=== PATIENT | male | born 1940 | race Caucasian/White ===

== ENCOUNTER → 2017-05-28 09:36 | Outpatient (CLI) | payer MEDICARE, SELFPAY ==
[2017-05-28 10:41] LABS: Alanine Aminotransferase 30 U/L (12-78); Albumin Level 4.1 gm/dL (3.4-5.0); Albumin/Globulin Ratio 1.4 (1.1-1.8); Alkaline Phosphatase 69 U/L (46-116); Anion Gap 14.1 mEq/L (5-15); Aspartate Amino Transferase 16 U/L (15-37); Bilirubin,Total 0.5 mg/dL (0.2-1.0); Blood Urea Nitrogen 17 mg/dL (7-18); Calcium 9.4 mg/dL (8.5-10.1); Carbon Dioxide 27 mmol/L (21.0-32.0); Chloride 105 mmol/L (98-107); Chol/HDL Ratio 2.2 (1-3.5); Cholesterol 108 mg/dL (140-200); Creatinine,Serum 1.15 mg/dL (0.70-1.30); Estimated Glomerular Filt Rate 62 ml/min (>60); GFR (African American) 75 ML/MIN (>60); Globulin 2.9 gm/dl (1.3-3.2); Glucose 136 mg/dL (74-106); HDL Cholesterol 49 mg/dL (27-67); LDL Cholesterol 37 mg/dL (0-130); Potassium 4.1 mmoL/L (3.5-5.1); Sodium 142 mmol/L (136-145); Triglycerides 111 mg/dL (30-200); Uric Acid 7.1 mg/dL (2.6-7.2); VLDL Cholesterol 22 mg/dL (0-40)
[2017-05-28 10:56] LABS: Hemoglobin A1C 6.6 % (0.0-7.0)
== END ==
PROVIDERS: PCP Family Medicine; Visit Provider Family Medicine
DX: E11.9 Type 2 diabetes mellitus without complications (principal); E78.5 Hyperlipidemia, unspecified; I10 Essential (primary) hypertension; E79.0 Hyperuricemia without signs of inflammatory arthritis and tophaceous disease
CPT/HCPCS: 36415; 80053; 80061; 83036; 84550

== ENCOUNTER → 2017-08-21 09:35 | Outpatient (CLI) | payer MEDICARE, SELFPAY ==
[2017-08-21 11:51] LABS: Prostate Specific Ag, Diagnost < 0.05 ng/mL (0.0-4.0)
== END ==
PROVIDERS: Visit Provider Urology
DX: Z85.46 Personal history of malignant neoplasm of prostate (principal)
CPT/HCPCS: 36415; 84153

== ENCOUNTER → 2017-11-21 08:49 | Outpatient (CLI) | payer MEDICARE, SELFPAY ==
[2017-11-21 10:21] LABS: Hemoglobin A1C 7.4 % (0.0-7.0)
[2017-11-21 11:11] LABS: Alanine Aminotransferase 31 U/L (12-78); Albumin/Globulin Ratio 1.4 (1.1-1.8); Alkaline Phosphatase 68 U/L (46-116); Anion Gap 13.9 mEq/L (5-15); Aspartate Amino Transferase 19 U/L (15-37); Bilirubin,Total 0.5 mg/dL (0.2-1.0); Blood Urea Nitrogen 23 mg/dL (7-18); Calcium 9.6 mg/dL (8.5-10.1); Carbon Dioxide 27 mmol/L (21.0-32.0); Chloride 105 mmol/L (98-107); Chol/HDL Ratio 2.8 (1-3.5); Cholesterol 113 mg/dL (140-200); Creatinine,Serum 1.15 mg/dL (0.70-1.30); Estimated Glomerular Filt Rate 62 ml/min (>60); GFR (African American) 75 ML/MIN (>60); Globulin 2.8 gm/dl (1.3-3.2); Glucose 158 mg/dL (74-106); HDL Cholesterol 41 mg/dL (27-67); LDL Cholesterol 42 mg/dL (0-130); Potassium 3.9 mmoL/L (3.5-5.1); Sodium 142 mmol/L (136-145); Total Protein,Serum 6.8 gm/dL (6.4-8.2); Triglycerides 151 mg/dL (30-200); VLDL Cholesterol 30 mg/dL (0-40)
[2017-11-21 11:21] LABS: Prostate Specific Ag, Diagnost 0.01 ng/mL (0.0-4.0)
== END ==
PROVIDERS: Visit Provider Family Medicine
DX: E11.9 Type 2 diabetes mellitus without complications (principal); I10 Essential (primary) hypertension; Z85.46 Personal history of malignant neoplasm of prostate; E78.00 Pure hypercholesterolemia, unspecified; E79.0 Hyperuricemia without signs of inflammatory arthritis and tophaceous disease
CPT/HCPCS: 36415; 80053; 80061; 83036; 84153

== ENCOUNTER → 2018-04-09 07:53 | Outpatient (CLI) | payer MEDICARE, SELFPAY ==
[2018-04-09 09:58] LABS: Prostate Specific Ag, Diagnost < 0.05 ng/mL (0.0-4.0)
== END ==
PROVIDERS: Visit Provider Urology
DX: C61 Malignant neoplasm of prostate (principal)
CPT/HCPCS: 36415; 84153

== ENCOUNTER → 2018-05-22 08:07 | Outpatient (CLI) | payer MEDICARE, SELFPAY ==
[2018-05-22 09:50] LABS: Alanine Aminotransferase 25 U/L (12-78); Albumin Level 4.1 gm/dL (3.4-5.0); Albumin/Globulin Ratio 1.5 (1.1-1.8); Alkaline Phosphatase 65 U/L (46-116); Anion Gap 14.7 mEq/L (5-15); Aspartate Amino Transferase 12 U/L (15-37); Bilirubin,Total 0.5 mg/dL (0.2-1.0); Blood Urea Nitrogen 17 mg/dL (7-18); Calcium 9.8 mg/dL (8.5-10.1); Carbon Dioxide 26 mmol/L (21.0-32.0); Chloride 104 mmol/L (98-107); Chol/HDL Ratio 2.6 (1-3.5); Cholesterol 104 mg/dL (140-200); Creatinine,Serum 1.12 mg/dL (0.70-1.30); Estimated Glomerular Filt Rate 64 ml/min (>60); GFR (African American) 77 ML/MIN (>60); Globulin 2.7 gm/dl (1.3-3.2); Glucose 116 mg/dL (74-106); HDL Cholesterol 40 mg/dL (27-67); LDL Cholesterol 36 mg/dL (0-130); Potassium 3.7 mmoL/L (3.5-5.1); Sodium 141 mmol/L (136-145); Total Protein,Serum 6.8 gm/dL (6.4-8.2); Triglycerides 142 mg/dL (30-200); VLDL Cholesterol 28 mg/dL (0-40)
== END ==
PROVIDERS: Visit Provider Family Medicine
DX: E78.5 Hyperlipidemia, unspecified (principal); E11.9 Type 2 diabetes mellitus without complications; I10 Essential (primary) hypertension; Z79.84 Long term (current) use of oral hypoglycemic drugs
CPT/HCPCS: 36415; 80053; 80061; 83036

== ENCOUNTER → 2018-10-13 11:56 | Outpatient (CLI) | payer MEDICARE, SELFPAY ==
[2018-10-13 12:53] LABS: Prostate Specific Ag, Diagnost 0 ng/mL (0.0-4.0)
== END ==
PROVIDERS: Visit Provider Urology
DX: C61 Malignant neoplasm of prostate (principal)
CPT/HCPCS: 36415; 84153

== ENCOUNTER → 2018-11-16 08:24 | Outpatient (CLI) | payer MEDICARE, SELFPAY ==
[2018-11-16 11:09] LABS: Alanine Aminotransferase 29 U/L (12-78); Albumin/Globulin Ratio 1.4 (1.1-1.8); Alkaline Phosphatase 78 U/L (46-116); Anion Gap 14.8 mEq/L (5-15); Aspartate Amino Transferase 11 U/L (15-37); Bilirubin,Total 0.6 mg/dL (0.2-1.0); Blood Urea Nitrogen 22 mg/dL (7-18); Calcium 9.5 mg/dL (8.5-10.1); Carbon Dioxide 26 mmol/L (21.0-32.0); Chloride 103 mmol/L (98-107); Chol/HDL Ratio 2.5 (1-3.5); Cholesterol 105 mg/dL (140-200); Creatinine,Serum 1.12 mg/dL (0.70-1.30); Estimated Glomerular Filt Rate 64 ml/min (>60); GFR (African American) 77 ML/MIN (>60); Globulin 2.9 gm/dl (1.3-3.2); Glucose 176 mg/dL (74-106); HDL Cholesterol 42 mg/dL (27-67); LDL Cholesterol 42 mg/dL (0-130); Potassium 3.8 mmoL/L (3.5-5.1); Sodium 140 mmol/L (136-145); Total Protein,Serum 6.9 gm/dL (6.4-8.2); Triglycerides 105 mg/dL (30-200); Uric Acid 6.4 mg/dL (2.6-7.2); VLDL Cholesterol 21 mg/dL (0-40)
== END ==
PROVIDERS: Visit Provider Family Medicine
DX: E11.9 Type 2 diabetes mellitus without complications (principal); Z79.84 Long term (current) use of oral hypoglycemic drugs; I10 Essential (primary) hypertension; E78.5 Hyperlipidemia, unspecified; E79.0 Hyperuricemia without signs of inflammatory arthritis and tophaceous disease
CPT/HCPCS: 36415; 80053; 80061; 83036; 84550

== ENCOUNTER → 2018-11-27 09:39 | Outpatient (CLI) | payer MEDICARE, SELFPAY ==
--- NOTE | 2018-11-27 09:43 | CA_ITS ---
APPROVED REPORT Drafter Electromechanical: RONNY Laterality: Bilateral Study Quality: Good Indications: Dizziness and Vertigo, Syncope Risk Factors Hypertension: Hyperlipidemia Doppler Spectral Velocity Analysis ECA (R) 46.40/ cm/s ECA (L) 78.90/ cm/s dICA (R) 67.60/14.90 cm/s dICA (L) 102.00/36.10 cm/s Coleman (R) 82.50/18.90 cm/s Coleman (L) 94.30/33.80 cm/s pICA (R) 75.40/20.40 cm/s pICA (L) 83.30/28.30 cm/s dCCA (R) 73.90/27.50 cm/s dCCA (L) 90.40/31.40 cm/s pCCA (R) 62.10/20.40 cm/s pCCA (L) 101.00/35.40 cm/s Vert (R) 26.70/ cm/s Vert (L) 37.40/ cm/s ICA/CCA 1.12 ICA/CCA 1.13 Findings Duplex evaluation demonstrates stenosis of the right proximal internal carotid artery <20% with PSV <140 cm/sec, EDV <100 cm/sec, and IC/CC Ratio <4.0.Duplex evaluation demonstrates stenosis of the left proximal internal carotid artery <20% with PSV <140 cm/sec, EDV <100 cm/sec, and IC/CC Ratio <4.0.Antegrade flow seen bilateral vertebral arteries. Conclusion Duplex evaluation demonstrates stenosis of the right proximal internal carotid artery <20% with PSV <140 cm/sec, EDV <100 cm/sec, and IC/CC Ratio <4.0.Duplex evaluation demonstrates stenosis of the left proximal internal carotid artery <20% with PSV <140 cm/sec, EDV <100 cm/sec, and IC/CC Ratio <4.0.Antegrade flow seen bilateral vertebral arteries. Electronically signed by : Ruel Casillas MD 11/27/2018 16:07:58
== END ==
PROVIDERS: PCP Family Medicine; Visit Provider Family Medicine
DX: R42 Dizziness and giddiness (principal); R55 Syncope and collapse
CPT/HCPCS: 93880

== ENCOUNTER → 2019-04-10 08:02 | Outpatient (CLI) | payer MEDICARE, SELFPAY ==
[2019-04-11 09:45] LABS: PSA, Free <0.01 ng/mL; Prostate Specific Ag <0.1 ng/mL (0.0-4.0)
== END ==
PROVIDERS: Visit Provider Urology
DX: C61 Malignant neoplasm of prostate (principal)
CPT/HCPCS: 36415; 84153; 84154

== ENCOUNTER → 2019-05-25 08:48 | Outpatient (CLI) | payer MEDICARE, SELFPAY ==
[2019-05-25 11:20] LABS: Alanine Aminotransferase 20 U/L (12-78); Albumin Level 4.3 g/dl (3.5-5.0); Albumin/Globulin Ratio 1.9 (1.1-1.8); Alkaline Phosphatase 60 U/L (38-126); Aspartate Amino Transferase 24 U/L (17-59); Bilirubin,Total 0.4 mg/dl (0.2-1.3); Blood Urea Nitrogen 21 mg/dl (9-20); Calcium 9.8 mg/dl (8.4-10.2); Carbon Dioxide 24 mmol/L (22.0-30.0); Chloride 105 mmol/L (98-107); Chol/HDL Ratio 2.7 (1-3.5); Cholesterol 106 mg/dl (140-200); Estimated Glomerular Filt Rate 72 ml/min (>60); GFR (African American) 88 ML/MIN (>60); Globulin 2.3 g/dL (1.3-3.2); Glucose 110 mg/dl (74-100); HDL Cholesterol 40 mg/dl (40-60); Sodium 141 mmol/L (136-145); Total Protein,Serum 6.6 g/dl (6.3-8.2); Triglycerides 136 mg/dl (30-150); VLDL Cholesterol 27 mg/dL (0-40)
[2019-05-25 11:44] LABS: Direct LDL Cholesterol 51.74 mg/dL
[2019-05-25 13:06] LABS: Hemoglobin A1C 6.6 % (4.0-6.0)
== END ==
PROVIDERS: Visit Provider Family Medicine
DX: I10 Essential (primary) hypertension (principal); E78.5 Hyperlipidemia, unspecified; E11.9 Type 2 diabetes mellitus without complications; Z79.84 Long term (current) use of oral hypoglycemic drugs
CPT/HCPCS: 36415; 80053; 80061; 83036

== ENCOUNTER → 2019-11-22 07:48 | Outpatient (CLI) | payer MEDICARE, SELFPAY ==
[2019-11-22 10:54] LABS: Alanine Aminotransferase 23 U/L (12-78); Albumin Level 4.1 g/dl (3.5-5.0); Albumin/Globulin Ratio 1.6 (1.1-1.8); Alkaline Phosphatase 68 U/L (38-126); Anion Gap 13.6 mEq/L (5-15); Aspartate Amino Transferase 29 U/L (17-59); Bilirubin,Total 0.5 mg/dl (0.2-1.3); Blood Urea Nitrogen 18 mg/dl (9-20); Calcium 10.1 mg/dl (8.4-10.2); Carbon Dioxide 26 mmol/L (22.0-30.0); Chloride 104 mmol/L (98-107); Cholesterol 101 mg/dl (140-200); Estimated Glomerular Filt Rate 72 ml/min (>60); GFR (African American) 88 ML/MIN (>60); Globulin 2.6 g/dL (1.3-3.2); Glucose 142 mg/dl (74-100); HDL Cholesterol 50 mg/dl (40-60); Potassium 4.6 mmoL/L (3.5-5.1); Sodium 139 mmol/L (136-145); Total Protein,Serum 6.7 g/dl (6.3-8.2); Triglycerides 102 mg/dl (30-150); VLDL Cholesterol 20 mg/dL (0-40)
[2019-11-22 11:05] LABS: Direct LDL Cholesterol 43.98 mg/dL (100-129)
== END ==
PROVIDERS: Visit Provider Family Medicine
DX: E78.5 Hyperlipidemia, unspecified (principal); I10 Essential (primary) hypertension; E11.9 Type 2 diabetes mellitus without complications; Z79.84 Long term (current) use of oral hypoglycemic drugs
CPT/HCPCS: 36415; 80053; 80061; 83036

== ENCOUNTER → 2019-12-21 13:38 | Outpatient (CLI) | payer MEDICARE, SELFPAY ==
[2019-12-21 16:50] LABS: Coronavirus 19 IgG Antibody Negative (Negative); Coronavirus 19 IgM Antibody Negative (Negative)
== END ==
PROVIDERS: Visit Provider Surgery
DX: Z01.84 Encounter for antibody response examination (principal)
CPT/HCPCS: 36415; 86328

== ENCOUNTER 2019-12-23 08:34 | Day surgery (SDC) | payer MEDICARE, SELFPAY ==
[2019-12-23] VITALS (7 sets, daily range): BP systolic 93–181; BP diastolic 71–89; PULSE 54–88; RESP 16–18; TEMP 36.3–36.4; O2SAT 92–99; BMI 26.1
[2019-12-23 09:20] LABS: POC Glucose,Bedside 84 (70-110)
--- NOTE | 2019-12-23 09:34 | P.PN_ITS ---
[facility] Anesthesia Checklist - Patient Identification Patient Identification: Arm Band, Verbal (Name & ) - Structural Data Admitted From: Home Planned Operative Procedure/s: colon Consent for Planned Operative Procedure(s) Verified: Yes Verified Documents: History and Physical - NPO Status Verified Time NPO: 00:00 - Chart Verification Results Verified: CBC, BMP - Additional verifications Patient : No Anesthesia Reactions: No Hx Blood Transfusions: No Blood Transfusion Reaction: No Cephalosporin Allergy: No Previous Colonoscopy: Yes - Cardiovascular Assessment Heart Sounds: S1 & S2 Pulse Strength: Baseline Pulse Rhythm: Regular Peripheral Edema: No - Airway Assessment C-Spine Mobility Assessed: Yes TMJ Mobility Assessed: Yes Dentition: Good Dentition - Neurological Assessment Level of Consciousness: Awake, Alert, Appropriate Hx Seizures: No Numbness or tingling in extremities: No - Anesthesia Plan Anesthesia Risk discussed: Yes Anesthesia Plan: Verified ASA Class: III Anesthesia Type: MAC [facility] History I have reviewed the patient's past medical history: Yes Medical History: Reports:: Cancer (skin), Diabetes Mellitus Type 2, Hyperlipidemia, Hypertension Denies:: Diabetes Mellitus Type 1, Internal Pacemaker, MRSA, Seizures *Have you ever received a pneumonia vaccine?: Yes *Have you received a flu vaccine this season?: Yes Anesthesia experience/problems:: none Other Surgeries: Yes: Cancer Surgery, Cholecystectomy, Colonoscopy. No: Pacemaker Amputation: No Fractures: No - *Social History Last grade of school completed: 9th or 10th Smoking Status: Never smoker Alcohol Intake: never Substance Use Type: denies use *Occupational Status:: retired Housing: house Household Members: children *Travel in the last 8 weeks: None Family Hx:: Tuberculosis, Hyperlipidemia, Hypertension
--- NOTE | 2019-12-23 10:55 | P.PCN_ITS ---
- Procedure: Date: 12/23/19 Patient Date of :: 03/10/1941 Procedure Performed:: Colonoscopy with polypectomy Indications:: Screening Performing Provider:: Eugene Cuellar MD Referring Provider:: . Sedation:: Monitored anesthesia care Procedure:: After informed consent was obtained the patient was taken to the endoscopy suite. Sedation ensued after the patient was transferred to the left lateral decubitus position. Pulse, blood pressure, and oxygen saturation were monitored throughout the procedure. Digital rectal exam revealed no significant ab normality. The colonoscope was placed in position. The entire colon was evaluated. The colonoscope was carefully removed and the patient was transferred to recovery in stable condition. Please see findings and specimens below for detail. Findings:: Hemorrhoidal tag Sigmoid diverticulosis Fairly profound lack of relaxation Bowel preparation relatively fair Multiple complex polyps (see specimens) Specimens:: Complex right colon polyp (snare) Large complex hepatic flexure polyp (snare) Adjacent lobulated polyps at 65 cm (snare) Polyp at 60 cm (snare) Polyp at 50 cm (snare) Polyp at 20 cm (snare) Recommendations:: Timing of repeat colonoscopy is pending pathology but will likely be around 2 years secondary to size/nature/number of polyps and lack of relaxation. Complications:: No immediate Estimated blood obtained (mL): 1
== END 2019-12-23 11:39 | disposition home or self-care (01) ==
LOC: OUTP 08:36
PROVIDERS: PCP Family Medicine; Visit Provider Surgery
PROC: 0DJD8ZZ Inspection of Lower Intestinal Tract, Via Natural or Artificial Opening Endoscopic (ICD-10-PCS; CPT 45385; principal; 2019-12-23 09:30)
DX: Z12.11 Encounter for screening for malignant neoplasm of colon (principal); K63.5 Polyp of colon; K64.0 First degree hemorrhoids; K63.89 Other specified diseases of intestine; E11.9 Type 2 diabetes mellitus without complications; E78.5 Hyperlipidemia, unspecified; I10 Essential (primary) hypertension; Z85.828 Personal history of other malignant neoplasm of skin; Z83.438 Family history of other disorder of lipoprotein metabolism and other lipidemia; Z82.49 Family history of ischemic heart disease and other diseases of the circulatory system; Z79.84 Long term (current) use of oral hypoglycemic drugs; Z79.899 Other long term (current) drug therapy
CPT/HCPCS: 45385; 82962; 88305

== ENCOUNTER → 2020-04-11 08:10 | Outpatient (CLI) | payer MEDICARE, SELFPAY ==
[2020-04-11 10:03] LABS: Prostate Specific Ag, Diagnost < 0.064 ng/ml (0.0-4.0)
== END ==
PROVIDERS: Visit Provider Urology
DX: Z85.46 Personal history of malignant neoplasm of prostate (principal)
CPT/HCPCS: 36415; 84153

== ENCOUNTER → 2020-05-29 08:17 | Outpatient (CLI) | payer MEDICARE, SELFPAY ==
[2020-05-29 08:48] LABS: Hemoglobin A1C 6.5 % (4.0-6.0)
[2020-05-29 08:59] LABS: Chloride 110 mmol/L (98-107); Potassium 4.3 mmoL/L (3.5-5.1); Sodium 140 mmol/L (136-145)
[2020-05-29 09:01] LABS: Alanine Aminotransferase 23 U/L (12-78); Aspartate Amino Transferase 24 U/L (17-59); Blood Urea Nitrogen 20 mg/dl (9-20); Estimated Glomerular Filt Rate 72 ml/min (>60); GFR (African American) 87 ML/MIN (>60)
[2020-05-29 09:02] LABS: Albumin Level 4.2 g/dl (3.5-5.0); Albumin/Globulin Ratio 1.6 (1.1-1.8); Alkaline Phosphatase 71 U/L (38-126); Anion Gap 10.3 mEq/L (5-15); Bilirubin,Total 0.7 mg/dl (0.2-1.3); Carbon Dioxide 24 mmol/L (22.0-30.0); Chol/HDL Ratio 2.2 (1-3.5); Cholesterol 105 mg/dl (140-200); Globulin 2.6 g/dL (1.3-3.2); Glucose 142 mg/dl (74-100); HDL Cholesterol 47 mg/dl (40-60); Total Protein,Serum 6.8 g/dl (6.3-8.2); Triglycerides 147 mg/dl (30-150); VLDL Cholesterol 29 mg/dL (0-40)
[2020-05-29 09:13] LABS: Direct LDL Cholesterol 37.75 mg/dL (100-129)
== END ==
PROVIDERS: Visit Provider Family Medicine
DX: I10 Essential (primary) hypertension (principal); E78.00 Pure hypercholesterolemia, unspecified; E11.9 Type 2 diabetes mellitus without complications; Z79.84 Long term (current) use of oral hypoglycemic drugs
CPT/HCPCS: 36415; 80053; 80061; 83036

== ENCOUNTER 2020-07-15 14:18 | Emergency (ER) | payer MEDICARE, SELFPAY ==
[2020-07-15 14:28] VITALS: BP 182/123; PULSE 43; RESP 16; TEMP 36.6; O2SAT 98; BMI 25.1
--- NOTE | 2020-07-15 14:34 | CT_ITS ---
PROCEDURE: CT HEAD/BRAIN WO CON CLINICAL INDICATION: vertiginous sxs Vertigo, dizziness, weakness COMPARISON: No exams were available for comparison TECHNIQUE: Axial images obtained. All CT scans at the facility use one or more dose reduction, viz: automated exposure control, ma/kV adjustment per patient size (including targeted exams where dose is matched to indication, i.e. head), or iterative reconstruction technique. FINDINGS: No midline shift, mass effect, intracranial hemorrhage, hydrocephalus, or extra-axial fluid collection is evident. The calvarium has an unremarkable appearance. No mastoid effusion. No sinus air-fluid level. IMPRESSION: No acute intracranial finding Dictated by: Ruel Casillas MD 07/15/2020 15:03 Ruel Casillas MD in [place] 07/15/2020 15:03
--- NOTE | 2020-07-15 14:36 | HMH.EDDIZZ ---
ED Disposition Clinical Impression: BPPV (benign paroxysmal positional vertigo) Qualifiers: Laterality: unspecified laterality Qualified Code(s): H81.10 - Benign paroxysmal vertigo, unspecified ear Disposition: Home, Self-Care Condition on Discharge: Good Instructions: Vertigo Prescriptions: Meclizine HCl [Meclizine 25mg Tab] 25 mg PO Q8HP PRN #30 tab PRN Reason: dizziness/vertigo Transmission Status: Pending to [employer] #[id number] Referrals: Brock Baumann MD [Primary Care Provider] - - Critical Care Critical Care Time: No Attestation: On 07/15/20, the high probability of a clinically significant, sudden or life threatening deterioration of the following system(s) required my full and direct attention, intervention and personal management. The time I documented below is in addition to time spent performing reported procedures but includes the following listed in this critical care notation. Medical Decision Making - Medical Records Medical records reviewed: Yes: I reviewed the patient's medical records. - Uzair Inquiry Pt receiving controlled substance: No Vital Signs: 07/15/20 14:28 Temperature 98 F Temperature Source Oral Pulse Rate [Radial] 43 L Respiratory Rate 16 Blood Pressure [Right Arm] 182/123 H Blood Pressure Mean [Right Arm] 142 Blood Pressure Position [Right Arm] Sitting 02 Sat by Pulse Oximetry 98 Oxygen Delivery Method Room Air - Lab Data Lab results reviewed: Yes: I reviewed the patient's lab results. Lab Results 07/15/20 14:40: WBC 4.9, RBC 4.14 L, Hgb 13.0 L, Hct 39.0 L, MCV 94.3 H, MCH 31.4 H, MCHC 33.3, RDW 14.5, Plt Count 196, MPV 8.4, Neut % (Auto) 55.2, Lymph % (Auto) 35.4, Ellis % (Auto) 6.9, Eos % (Auto) 1.7, Baso % (Auto) 0.7, Neut # (Auto) 2.7, Lymph # (Auto) 1.7, Ellis # (Auto) 0.3, Eos # (Auto) 0.1, Baso # (Auto) 0.0 07/15/20 14:40: Sodium 139, Potassium 4.0, Chloride 105, Carbon Dioxide 24, Anion Gap 14.0, BUN 19, Creatinine 1.00, Estimated Creat Clear 66, Estimated GFR 72, Est GFR ( Amer) 87, Glucose 141 H, Calcium 9.7, Total Bilirubin 0.8, AST 29, ALT 21, Alkaline Phosphatase 71, Total Protein 7.1, Albumin 4.5, Globulin 2.6, Albumin/Globulin Ratio 1.7 07/15/20 14:40: PT 10.9, INR 0.92, APTT 25.0 Result diagrams: 07/15/20 14:40 07/15/20 14:40 Orders (Tests/Meds): ED MEDICATIONS Discontinued Medications Generic Name Dose Route Start Last Admin Trade Name Freq PRN Reason Stop Dose Admin Meclizine HCl 50 mg 07/15/20 14:36 07/15/20 15:02 Meclizine 25mg Tablet PO 07/15/20 14:37 50 mg ONCE ONE Administration - CT Data CT Scan: Head Time Received: 15:[address] Reviewed: Yes: I have reviewed the patient's CT results, I have viewed the radiologist's interpretation Preliminary Findings: Normal/NAD - ECG Data Tracing #1 ECG initial impression date: 07/15/20 ECG initial impression time: 15:28 ECG normal with no acute: arrhythmias, ischemia, conduction abnormalities, chamber hypertrophy Arrhythmias present: sinus keira Dizzy HPI - General Chief Complaint: Dizziness Stated Complaint: elevated BP and Respiratory rate Time Seen by Provider: 07/15/20 14:30 Mode of Arrival: Ambulatory Limitations: No Limitations Description of Symptoms (Recalled from ER Triage Doc. 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 c/o nausea. pt denies chest pain, sob. - History of Present Illness HPI Narrative: This is a 79-year-old male that presents with sudden onset of dizziness and vertigo. Symptoms began while patient was lying down in his passenger seat of his car trying to clean the windows whenever his symptoms began. He reports mild nausea without vomiting he also reports difficulty ambulating secondary to coordination. Symptoms are worsened with movement particularly rotation of the head in either direction. Symptoms are moderate in intensity and co
[2020-07-15 14:48] LABS: Basophils % 0.7 % (0.1-2.0); Eosinophils # 0.1 K/mm3 (0.0-0.4); Eosinophils % 1.7 % (0.1-12.0); Lymphocytes # 1.7 K/mm3 (0.7-4.5); Lymphocytes % 35.4 % (10-50); Mean Corpuscular HGB Conc 33.3 g/dL (31.8-35.4); Mean Corpuscular Hemoglobin 31.4 pg (27.0-31.2); Mean Corpuscular Volume 94.3 fl (80-94); Mean Platelet Volume 8.4 fl (7.4-10.4); Monocytes # 0.3 K/mm3 (0.1-1.0); Monocytes % 6.9 % (1.7-9.3); Neutrophils # 2.7 K/mm3 (1.8-7.8); Neutrophils % 55.2 % (37.0-80.0); Platelet Count 196 K/mm3 (142-424); Red Blood Count 4.14 M/mm3 (4.60-6.20); Red Cell Distribution Width 14.5 % (11.5-17.5); White Blood Count 4.9 K/mm3 (4.8-10.8)
[2020-07-15 14:56] LABS: Alanine Aminotransferase 21 U/L (12-78); Albumin Level 4.5 g/dl (3.5-5.0); Albumin/Globulin Ratio 1.7 (1.1-1.8); Alkaline Phosphatase 71 U/L (38-126); Aspartate Amino Transferase 29 U/L (17-59); Bilirubin,Total 0.8 mg/dl (0.2-1.3); Blood Urea Nitrogen 19 mg/dl (9-20); Calcium 9.7 mg/dl (8.4-10.2); Carbon Dioxide 24 mmol/L (22.0-30.0); Chloride 105 mmol/L (98-107); Creatinine Clearance Estimated 66 mL/min (50-200); Estimated Glomerular Filt Rate 72 ml/min (>60); GFR (African American) 87 ML/MIN (>60); Globulin 2.6 g/dL (1.3-3.2); Glucose 141 mg/dl (74-100); Sodium 139 mmol/L (136-145); Total Protein,Serum 7.1 g/dl (6.3-8.2)
[2020-07-15 14:58] LABS: INR 0.92 (0.9-1.1); Prothrombin Time 10.9 seconds (10.1-12.5)
--- NOTE | 2020-07-15 15:07 | ECG_ITS ---
APPROVED REPORT Exam: Resting ECG HR:46 bpm ECG Measurements Heart Rate 46 AXES WV 140 P 34 QRSd 142 QRS 15 QT 510 T 44 QTc 446 Conclusion Marked sinus bradycardia Right bundle branch block Abnormal ECG Electronically signed by : Cabrera Coronado, 07/15/2020 20:05:55
[2020-07-15 16:12] VITALS: BP 152/78; PULSE 48; RESP 20; TEMP 36.6; O2SAT 98
== END 2020-07-15 16:12 | disposition home or self-care (01) ==
PROVIDERS: Emergency Provider Emergency Medicine; PCP Family Medicine
DX: H81.10 Benign paroxysmal vertigo, unspecified ear (principal); E11.65 Type 2 diabetes mellitus with hyperglycemia; E78.5 Hyperlipidemia, unspecified; I10 Essential (primary) hypertension; Z88.1 Allergy status to other antibiotic agents; Z79.899 Other long term (current) drug therapy
CPT/HCPCS: 70450; 80053; 85025; 85610; 85730; 93005; 99283

== ENCOUNTER → 2020-07-25 15:05 | Outpatient (CLI) | payer MEDICARE, SELFPAY ==
[2020-07-25 16:33] LABS: Coronavirus 19 IgG Antibody Positive (Negative); Coronavirus 19 IgM Antibody Negative (Negative)
== END ==
PROVIDERS: Visit Provider Surgery
DX: Z01.812 Encounter for preprocedural laboratory examination (principal); Z20.822 Contact with and (suspected) exposure to COVID-19; Z12.11 Encounter for screening for malignant neoplasm of colon; Z86.010 Personal history of colon polyps
CPT/HCPCS: 36415; 86328

== ENCOUNTER 2020-07-27 10:05 | Day surgery (SDC) | payer MEDICARE, SELFPAY ==
[2020-07-27] VITALS (14 sets, daily range): BP systolic 89–183; BP diastolic 53–85; PULSE 45–82; RESP 16–18; TEMP 36.2–36.4; O2SAT 95–100; BMI 26.6
[2020-07-27 10:38] LABS: POC Glucose,Bedside 141 (70-110)
--- NOTE | 2020-07-27 10:57 | HMH.ANESCL ---
[facility] Anesthesia Checklist - Patient Identification Patient Identification: Arm Band - Structural Data Admitted From: Home Planned Operative Procedure/s: colonoscopy Consent for Planned Operative Procedure(s) Verified: Yes Verified Documents: Surgical Consent, History and Physical - NPO Status Verified Time NPO: 00:00 - Additional verifications Anesthesia Reactions: No Hx Blood Transfusions: No Blood Transfusion Reaction: No - Airway Assessment C-Spine Mobility Assessed: Yes (mp2) TMJ Mobility Assessed: Yes Dentition: Poor Dentition - Neurological Assessment Level of Consciousness: Awake, Alert - Anesthesia Plan Anesthesia Risk discussed: Yes Anesthesia Plan: Verified ASA Class: III Anesthesia Type: MAC [facility] History I have reviewed the patient's past medical history: Yes Medical History: Reports:: Diabetes Mellitus Type 2, Hyperlipidemia, Hypertension, MRSA (prostate) Denies:: Cancer, Diabetes Mellitus Type 1, Internal Pacemaker, Seizures *Have you ever received a pneumonia vaccine?: Yes *Have you received a flu vaccine this season?: Yes Other Medical History: Denies: Blood Transfusion Reaction Anesthesia experience/problems:: nac Other Surgeries: Yes: Cancer Surgery, Cholecystectomy, Colonoscopy. No: Pacemaker Amputation: No Fractures: No - *Social History Last grade of school completed: 9th or 10th Smoking Status: Never smoker Alcohol Intake: never Substance Use Type: denies use *Occupational Status:: retired Housing: house Household Members: family *Travel in the last 8 weeks: None Family Hx:: Tuberculosis, Hyperlipidemia, Hypertension
--- NOTE | 2020-07-27 11:24 | HMH.SCOPE ---
- Procedure: Date: 07/27/20 Patient Date of :: 03/10/1941 Procedure Performed:: Colonoscopy with polypectomy by means other than snare Indications:: History of colon polyps. Multiple complex polyps noted on recent colonoscopy that was also somewhat complicated by limited visualization (lack of relaxation). Performing Provider:: Eugene Cuellar MD Referring Provider:: . Sedation:: Monitored anesthesia care Procedure:: After informed consent was obtained the patient was taken to the endoscopy suite. Sedation ensued after the patient was transferred to the left lateral decubitus position. Pulse, blood pressure, and oxygen saturation were monitored throughout the procedure. Digital rectal exam revealed no significant abnormality. The colonoscope was placed in position. The entire colon was evaluated. The colonoscope was carefully removed and the patient was transferred to recovery in stable condition. Please see findings and specimens below for detail. Findings:: Bowel preparation fair to moderate Improved relaxation versus prior evaluation Unchanged hemorrhoidal tags Sigmoid diverticulosis Polyps (see specimens) Specimens:: Transverse colon polyp Adjacent splenic flexure polyps Polyp at 15 cm Recommendations:: Timing of repeat colonoscopy is pending pathology but will likely be between 2-3 years secondary to history of large complex polyps, polyps noted on short-term repeat evaluation, and slightly-limiting bowel preparation. Complications:: No immediate Estimated blood obtained (mL): 1
[2020-07-27 12:41] LABS: POC Glucose,Bedside 131 (70-110)
--- NOTE | 2020-07-27 12:42 | ECG_ITS ---
APPROVED REPORT Exam: Resting ECG HR:52 bpm ECG Measurements Heart Rate 52 AXES AL 144 P 44 QRSd 152 QRS 113 QT 480 T 35 QTc 446 Conclusion Sinus bradycardia with marked sinus arrhythmia Right bundle branch block Abnormal ECG Electronically signed by : Cabrera Coronado, 07/28/2020 19:11:14
--- NOTE | 2020-07-27 13:50 | SUR.PHASEII ---
SPOKE WITH DR RICKETTS. PT HAD A COLONOSCOPY TODAY. PT WAS GETTING DRESSED TO GO HOME AND STARTED FEELING QUEASY, SHAKY, AND DIZZY. PT HR RUNNING 45-50. FSBS 131. 12 LEAD EKG SHOWED SINUS TRACEE WITH RIGHT BUNDLE BRANCH BLOCK. DR HUERTA WANTED PT TO FOLLOW UP WITH PRIMARY CARE PHYSICIAN OR COULD BE EVALUATED IN ER IF PT WANTED TO BE SEEN. PT DECLINED GOING TO ER. PT WANTING TO FOLLOW UP WITH YOU. PT DISCHARGED AT 1315. PT DENIED ANY SHAKY, DIZZINESS, OR QUEASY FEELING AT THAT TIME. OFFICE APPT TODAY WITH DR RICKETTS AT 1530.
== END 2020-07-27 13:15 | disposition home or self-care (01) ==
LOC: OUTP 10:06
PROVIDERS: PCP Family Medicine; Visit Provider Surgery
PROC: 0DJD8ZZ Inspection of Lower Intestinal Tract, Via Natural or Artificial Opening Endoscopic (ICD-10-PCS; principal; 2020-07-27 11:30)
DX: K64.9 Unspecified hemorrhoids (principal); K57.30 Diverticulosis of large intestine without perforation or abscess without bleeding; K63.5 Polyp of colon; K62.1 Rectal polyp; Z86.010 Personal history of colon polyps; E11.9 Type 2 diabetes mellitus without complications; E78.5 Hyperlipidemia, unspecified; I10 Essential (primary) hypertension; Z86.14 Personal history of Methicillin resistant Staphylococcus aureus infection; Z83.438 Family history of other disorder of lipoprotein metabolism and other lipidemia; Z82.49 Family history of ischemic heart disease and other diseases of the circulatory system; Z83.6 Family history of other diseases of the respiratory system
CPT/HCPCS: 45380; 82962; 88305; 93005; 93225; 93226

== ENCOUNTER → 2020-08-07 15:09 | Outpatient (CLI) | payer MEDICARE, SELFPAY ==
--- NOTE | 2020-08-07 15:12 | CA_ITS ---
APPROVED REPORT EXAM: Comprehensive 2D, Doppler, and color-flow Echocardiogram Tariff Compiling Clerk: Florina Granados RT(R) Ht: 5 ft 8 in Wt: 177lbs BSA: 1.94 BP: 147/81 mmHg Indications: bradycardia, HTN, DM, hyperlipidemia 2D Dimensions LVOT 2.01 cm (M/F) 1.5-2.5 LVEF (Montalvo's) 61.10 % M: 52 - 72 LV Volume 109.80 mL M: 62 - 150 LV Volume Index 56.59 mL/m2 M: 34 - 74 LA Volume 31.40 mL LA Volume Index 16.18 mL/m2 (M/F) 16-34 M-Mode Dimensions RVDd 3.25 cm (0.9-2.6) LA Diam 3.55 cm (1.9-4.0) LVDd 5.15 cm (3.5-5.7) Ao Diam 3.55 cm (2.0-3.7) LVDs 3.75 cm (3.5-5.7) IVSd 0.93 cm (0.6-1.1) PWd 1.00 cm (0.6-1.1) EF (Teich) 52.60% FS 27.20% EDV (Teich) 126.60 mL ESV (Teich) 60.00 mL LV Diastology E Decel Time 253.00 (160-240 msec) E/A Ratio 0.7 MED E' 6.10 (< 7 cm/sec) E'/MED E' Ratio 8.28 (>14) LAT E' 9.40 (<10 cm/sec) E/LAT E' Ratio 5.37 (>14) Aortic Valve AI PHT 775.00 ms Mitral Valve MV E Max Mario. 50.00 (40-130 cm/s) MV A Velocity 75.00 (40-130 cm/s) E/A Ratio 0.67 MV Decel. Time 253.00 (160-240 ms) MV PHT 74.00 ms Tricuspid Valve TR P. Velocity 248.00 cm/s RAP Estimate 10.00 mmHg RVSP 34.60 mmHg Left Ventricle Left atrium is mildly enlarged, left ventricle is normal size, mild concentric left ventricular hypertrophy, visually estimated ejection fraction 55% with no regional wall motion abnormality, grade 1 diastolic dysfunction seen without tissue Doppler evidence of raise left atrial pressure. Right Ventricle Right atrium and right ventricle are normal size and contractility. Aortic Valve Aortic valve is minimally thickened and calcified, there is no aortic stenosis, there is mild aortic insufficiency. Mitral Valve Mitral valve is grossly normal, there is mild mitral regurgitation. Tricuspid Valve Tricuspid grossly normal, there is mild tricuspid regurgitation, tricuspid regurgitation jet velocity is inadequate for calculation of the right ventricular systolic pressure. Pulmonic Valve Pulmonic valve is poorly visualized. Great Vessels Aortic root is normal size. Pericardium No significant pericardial effusion noted. Conclusion 1. Mildly enlarged left atrium, normal left ventricular size, mild concentric left ventricular hypertrophy, visually estimated ejection fraction 55% with no regional wall motion abnormality, grade 1 diastolic dysfunction seen without tissue Doppler evidence of raise left atrial pressure. 2. Mild aortic, mild mitral and tricuspid regurgitation. 3. No significant pericardial effusion noted. Electronically signed by : Diony Borden, 08/07/2020 17:05:49
== END ==
PROVIDERS: PCP Family Medicine; Visit Provider Family Medicine
DX: I10 Essential (primary) hypertension; R00.8 Other abnormalities of heart beat
CPT/HCPCS: 93306

== ENCOUNTER → 2020-11-29 08:00 | Outpatient (CLI) | payer MEDICARE, SELFPAY ==
[2020-11-29 08:45] LABS: Hemoglobin A1C 7.2 % (4.0-6.0)
[2020-11-29 09:25] LABS: Chloride 105 mmol/L (98-107); Potassium 4.6 mmoL/L (3.5-5.1); Sodium 140 mmol/L (136-145)
[2020-11-29 09:28] LABS: Alanine Aminotransferase 29 U/L (12-78); Albumin Level 4.1 g/dl (3.5-5.0); Albumin/Globulin Ratio 1.7 (1.1-1.8); Alkaline Phosphatase 69 U/L (38-126); Anion Gap 13.6 mEq/L (5-15); Aspartate Amino Transferase 30 U/L (17-59); Bilirubin,Total 0.6 mg/dl (0.2-1.3); Blood Urea Nitrogen 21 mg/dl (9-20); Carbon Dioxide 26 mmol/L (22.0-30.0); Cholesterol 100 mg/dl (140-200); Estimated Glomerular Filt Rate 72 ml/min (>60); GFR (African American) 87 ML/MIN (>60); Globulin 2.4 g/dL (1.3-3.2); Total Protein,Serum 6.5 g/dl (6.3-8.2); Triglycerides 159 mg/dl (30-150); VLDL Cholesterol 32 mg/dL (0-40)
[2020-11-29 09:29] LABS: Calcium 9.6 mg/dl (8.4-10.2); Chol/HDL Ratio 2.6 (1-3.5); Glucose 162 mg/dl (74-100); HDL Cholesterol 38 mg/dl (40-60)
[2020-11-29 09:40] LABS: Direct LDL Cholesterol 42.19 mg/dL (100-129)
== END ==
PROVIDERS: Visit Provider Family Medicine
DX: E11.9 Type 2 diabetes mellitus without complications (principal); I10 Essential (primary) hypertension; E78.5 Hyperlipidemia, unspecified; Z79.84 Long term (current) use of oral hypoglycemic drugs
CPT/HCPCS: 36415; 80053; 80061; 83036

== ENCOUNTER 2020-12-30 13:22 | Emergency (ER) | payer MEDICARE, SELFPAY ==
[2020-12-30] VITALS (11 sets, daily range): BP systolic 151–201; BP diastolic 73–120; PULSE 47–75; RESP 13–22; TEMP 36.8; O2SAT 96–100; BMI 27.3
--- NOTE | 2020-12-30 14:09 | XR_ITS ---
PROCEDURE INFORMATION: Exam: XR Chest Exam date and time: 12/30/2020 2:09 PM Age: 79 years old Clinical indication: Tachypnea and other: Dizzy; Additional info: Dizziness, elevated BP, low hr TECHNIQUE: Imaging protocol: XR of the chest. Views: 1 view. COMPARISON: CR KUB KUB (SINGLE VIEW) 02/25/2017 11:07 AM FINDINGS: Lungs: Unremarkable. No consolidation. Pleural spaces: Unremarkable. No pleural effusion. No pneumothorax. Heart/Mediastinum: Unremarkable. No cardiomegaly. Bones/joints: Unremarkable. IMPRESSION: No acute findings.
--- NOTE | 2020-12-30 14:14 | ECG_ITS ---
APPROVED REPORT Exam: Resting ECG HR:43 bpm ECG Measurements Heart Rate 43 AXES HI 176 P 76 QRSd 156 QRS 96 QT 500 T 67 QTc 422 Conclusion Marked sinus bradycardia Right bundle branch block Abnormal ECG Electronically signed by : Cabrera Coronado MD 12/31/2020 20:53:30
[2020-12-30 14:16] LABS: POC Glucose,Bedside 183 (70-110)
[2020-12-30 14:29] LABS: Basophils % 0.5 % (0.1-2.0); Eosinophils # 0.1 K/mm3 (0.0-0.4); Eosinophils % 1.6 % (0.1-12.0); Hematocrit 40.2 % (42.0-52.0); Hemoglobin 13.3 g/dL (14.1-18.0); Lymphocytes # 1.2 K/mm3 (0.7-4.5); Lymphocytes % 21.7 % (10-50); Mean Corpuscular HGB Conc 33.1 g/dL (31.8-35.4); Mean Corpuscular Hemoglobin 32.7 pg (27.0-31.2); Mean Corpuscular Volume 98.7 fl (80-94); Monocytes # 0.3 K/mm3 (0.1-1.0); Monocytes % 5.2 % (1.7-9.3); Platelet Count 217 K/mm3 (142-424); Red Blood Count 4.07 M/mm3 (4.60-6.20); Red Cell Distribution Width 14.6 % (11.5-17.5); White Blood Count 5.7 K/mm3 (4.8-10.8)
[2020-12-30 14:36] LABS: Alanine Aminotransferase 29 U/L (12-78); Albumin Level 4.2 g/dl (3.5-5.0); Albumin/Globulin Ratio 1.6 (1.1-1.8); Alkaline Phosphatase 61 U/L (38-126); Anion Gap 13.4 mEq/L (5-15); Aspartate Amino Transferase 30 U/L (17-59); Bilirubin,Total 0.5 mg/dl (0.2-1.3); Blood Urea Nitrogen 18 mg/dl (9-20); Calcium 9.6 mg/dl (8.4-10.2); Carbon Dioxide 26 mmol/L (22.0-30.0); Chloride 104 mmol/L (98-107); Creatinine Clearance Estimated 70 mL/min (50-200); Estimated Glomerular Filt Rate 72 ml/min (>60); GFR (African American) 87 ML/MIN (>60); Globulin 2.6 g/dL (1.3-3.2); Glucose 204 mg/dl (74-100); Potassium 4.4 mmoL/L (3.5-5.1); Sodium 139 mmol/L (136-145); Total Protein,Serum 6.8 g/dl (6.3-8.2)
--- NOTE | 2020-12-30 14:47 | HMH.EDGENADL ---
ED Disposition Clinical Impression: Dizziness Hypertension Qualifiers: Hypertension type: unspecified Qualified Code(s): I10 - Essential (primary) hypertension Disposition: Home, Self-Care Condition on Discharge: Good Instructions: DI for Dizziness-Nonvertigo Additional Instructions: Follow-up with your primary care provider, call Friday. Return the emergency department if worse. Referrals: Brock Baumann MD [Primary Care Provider] - - Critical Care Critical Care Time: No Attestation: On 12/30/20, the high probability of a clinically significant, sudden or life threatening deterioration of the following system(s) required my full and direct attention, intervention and personal management. The time I documented below is in addition to time spent performing reported procedures but includes the following listed in this critical care notation. Medical Decision Making - Medical Records Medical records reviewed: Yes: I reviewed the patient's medical records. MR Mora: Seen in this emergency department on 07/15/2020 for vertigo. Prescribed meclizine. CT scan of head and work-up negative. - Uzair Inquiry Pt receiving controlled substance: No Vital Signs: 12/30/20 13:24 12/30/20 14:31 12/30/20 14:59 Temperature 98.3 F Temperature Source Oral Pulse Rate 47 L 54 L Pulse Rate [Right Radial] 47 L Respiratory Rate 13 16 16 Blood Pressure 160/78 H 201/94 H Blood Pressure [Right Arm] 194/98 H Blood Pressure Mean 105 117 Blood Pressure Mean [Right Arm] 130 Blood Pressure Source [Right Arm] Automatic Cuff Blood Pressure Position [Right Arm] Sitting 02 Sat by Pulse Oximetry 100 99 99 Oxygen Delivery Method Room Air 12/30/20 15:00 12/30/20 15:02 12/30/20 15:27 Temperature Temperature Source Pulse Rate 75 48 L 67 Pulse Rate [Right Radial] Respiratory Rate 22 19 16 Blood Pressure 199/120 H 179/91 H 180/94 H Blood Pressure [Right Arm] Blood Pressure Mean 130 120 124 Blood Pressure Mean [Right Arm] Blood Pressure Source [Right Arm] Blood Pressure Position [Right Arm] 02 Sat by Pulse Oximetry 98 96 98 Oxygen Delivery Method 12/30/20 15:29 12/30/20 16:01 Temperature Temperature Source Pulse Rate 53 L 52 L Pulse Rate [Right Radial] Respiratory Rate 22 16 Blood Pressure 199/93 H 160/80 H Blood Pressure [Right Arm] Blood Pressure Mean 116 113 Blood Pressure Mean [Right Arm] Blood Pressure Source [Right Arm] Blood Pressure Position [Right Arm] 02 Sat by Pulse Oximetry 99 99 Oxygen Delivery Method - Lab Data Lab Results 12/30/20 14:08: POC Glucose 183 H 12/30/20 14:23: WBC 5.7, RBC 4.07 L, Hgb 13.3 L, Hct 40.2 L, MCV 98.7 H, MCH 32.7 H, MCHC 33.1, RDW 14.6, Plt Count 217, MPV 9.0, Neut % (Auto) 71.0, Lymph % (Auto) 21.7, [place] % (Auto) 5.2, Eos % (Auto) 1.6, Baso % (Auto) 0.5, Neut # (Auto) 4.0, Lymph # (Auto) 1.2, [place] # (Auto) 0.3, Eos # (Auto) 0.1, Baso # (Auto) 0.0 12/30/20 14:23: Sodium 139, Potassium 4.4, Chloride 104, Carbon Dioxide 26, Anion Gap 13.4, BUN 18, Creatinine 1.00, Estimated Creat Clear 70, Estimated GFR 72, Est GFR ( Amer) 87, Glucose 204 H, Calcium 9.6, Total Bilirubin 0.5, AST 30, ALT 29, Alkaline Phosphatase 61, Troponin I < 0.01, Total Protein 6.8, Albumin 4.2, Globulin 2.6, Albumin/Globulin Ratio 1.6 12/30/20 15:06: Urine Color Yellow, Urine Appearance Sl cloudy, Urine pH 5.5, Ur Specific [place] >= 1.030, Urine Protein Negative, Urine Glucose (UA) 3+, Urine Ketones Negative, Urine Blood Negative, Urine Nitrate Negative, Urine Bilirubin Negative, Urine Urobilinogen 0.2, Ur Leukocyte Esterase Negative, Ur Squamous Epith Cells Occasional, Urine Bacteria Trace, Urine Mucus 1+ Result diagrams: 12/30/20 14:23 12/30/20 14:23 Orders (Tests/Meds): ED MEDICATIONS Discontinued Medications Generic Name Dose Route Start Last Admin Trade Name Freq PRN Reason Stop Dose Admin Lisinopril 10 mg 12/31/20 15:30
[2020-12-30 14:50] LABS: Troponin I < 0.01 ng/ml (0.00-0.034)
[2020-12-30 15:10] LABS: Microscopic, Urine URINE MICROSCOPIC (MICROSCOPIC)
[2020-12-30 15:12] LABS: Appearance,Urine SL CLOUDY (Clear); Bilirubin,Urine Negative (Negative); Blood, Urine Negative (Negative); Color,Urine YELLOW (Yellow); Glucose,Urine (UA) 3+ (Negative); Ketones,Urine Negative (Negative); Leukocyte Esterase,Urine Negative (Negative); Nitrate,Urine Negative (Negative); PH,Urine 5.5 (5.0-8.5); Protein,Urine Negative (Negative); Specific Gravity, Urine >= 1.030 (1.005-1.030); Urobilinogen,Urine 0.2 EU/dl (0.2)
[2020-12-30 15:27] LABS: Bacteria,Urine Trace /lpf; Mucus,Urine 1+ /lpf; Squamous Epithelial Cell,Urine Occasional #/hpf (0-5)
== END 2020-12-30 17:10 | disposition home or self-care (01) ==
PROVIDERS: Emergency Provider Emergency Medicine; PCP Family Medicine
DX: R42 Dizziness and giddiness (principal); I10 Essential (primary) hypertension; Z79.899 Other long term (current) drug therapy
CPT/HCPCS: 71045; 80053; 81001; 82962; 84484; 85025; 93005; 99283

== ENCOUNTER → 2021-01-04 14:55 | Outpatient (CLI) | payer MEDICARE, SELFPAY | PROVIDERS: PCP Family Medicine; Visit Provider Internal Medicine Cardiovascular Disease | DX: R42 Dizziness and giddiness (principal); I65.29 Occlusion and stenosis of unspecified carotid artery | CPT/HCPCS: 93225 ==

== ENCOUNTER → 2021-01-19 06:53 | Outpatient (CLI) | payer SELFPAY ==
--- NOTE | 2021-01-19 06:54 | CT_ITS ---
PROCEDURE: CT HEART W CALCIUM SCORE CLINICAL HISTORY: teto COMPARISON: No exams were available for comparison TECHNIQUE: Axial images obtained with sagittal and coronal reformats. All CT scans at the facility use one or more dose reduction, viz: automated exposure control, ma/kV adjustment per patient size (including targeted exams where dose is matched to indication, i.e. head), or iterative reconstruction technique. FINDINGS: The coronary artery calcium score is 104. Moderate calcific plaque burden with high cardiovascular disease risk. There atelectatic change versus scarring in the lingula and right middle lobe. Small pneumatocele is present in the right middle lobe at 1.4 by 0.8 cm. IMPRESSION: Moderate calcific plaque burden with high cardiovascular disease risk Dictated by: Ruel Casillas MD 01/19/2021 08:10 Ruel Casillas MD in [place] 01/19/2021 08:10
== END ==
PROVIDERS: PCP Family Medicine; Visit Provider Internal Medicine Cardiovascular Disease
DX: Z13.6 Encounter for screening for cardiovascular disorders (principal); H81.10 Benign paroxysmal vertigo, unspecified ear
CPT/HCPCS: 75571

== ENCOUNTER → 2021-01-19 07:14 | Outpatient (CLI) | payer MEDICARE, SELFPAY ==
--- NOTE | 2021-01-19 07:14 | NM_ITS ---
APPROVED REPORT Exam: Nuclear Stress Test Indication: Abnormal EKG, HTN, DM, High cholesterol Patient Location: Outpatient Stress Tech: Christine Mckeon MS Tech:Kirsten De La Cruz, ARRT, RT (R)(N) Ht: 5 ft 8 in Wt: 180 lbs HR: 57 bpm BP: 165/87 mmHg BSA: 1.95 m2 BMI: 27.3 History: Abnormal EKG, HTN, DM, High cholesterol Procedure: Patient exercised on Thierno protocol 4:01 minutes and sec, resting heart rate 57 bpm, resting blood pressure 165/87 mmHg, with exercise maximum heart rate achived was 130 bpm which is 92 % of the maximum predicted heart rate and blood pressure was 227/100 mmHg. Test was stopped due to SOB. Patient denied any complaint of chest pain. Patient has adequate exercise capacity, achieved 7.0 METs of workload on treadmill, the blood pressure response to exercise was Hypertensive. Electrocardiogram Resting electrocardiogram shows sinus rhythm right bundle branch block, with exercise there is less than 1.[address] segment depression noted from the baseline EKG. The EKG portion of the exercise Myoview is negative for ischemia. Cardiac Stress and Resting SPECT Images: Gated SPECT for analysis of segmental wall motion and calculation of the ejection fraction also done. Prone images were also obtained. Cardiac stress and resting SPECT images show uniform myocardial activity without segmental perfusion abnormality, compared right ejection fraction is 57% with no regional wall motion abnormality, right ventricle is normal size and contractility. Conclusion: 1. The EKG portion of the exercise Myoview is negative for ischemia, patient has adequate exercise capacity achieved 7 METS of workload on treadmill, the blood pressure response to exercise was hypertensive, there was no exercise-induced chest discomfort, test was stopped due to shortness of breath. 2. No scintigraphic evidence of reversible ischemia seen, computer derived ejection fraction 57% with no regional wall motion abnormality, right ventricle is normal size and contractility. 3. Normal exercise Myoview study except for hypertensive blood pressure response to exercise. Electronically signed by : Diony Borden MD 01/19/2021 13:45:17
--- NOTE | 2021-01-19 10:04 | HMH.ITSHM ---
Current Home Medications as stated by this patient Oscar Munoz or sales representative trainee. []METFORMIN MECLIZINE LORATADINE LISINOPRIL EZETIMIBE ATORVASTATIN ALLOPURINOL
--- NOTE | 2021-01-19 10:52 | CA_ITS ---
APPROVED REPORT Exam: Exercise Treadmill Technologist: Christine Mckeon, Ht: 5 ft 8 in Wt: 180 lbs BSA: 1.95 m2 HR: 44 bpm BP: 164/71 mmHg Medical History Medications: Lisinopril,,,,, Allopurinol,,,,, LoraTADINE,,,,, Meclizine,,,,, Ezetimbe,,,,, AtorvaASTATIN,,,,, Metformin ER,,,,, Stress Test Details Test: Thierno HR Resting HR: 57 bpm Max Heart Rate (APMHR): 142.459582 bpm Max HR Achieved: 130 bpm Target HR (85% APMHR): 120.266826 bpm % of APMHR: 91.55 Recovery HR: 54 bpm BP Resting BP: 165/87 mmHg Max BP: 227/100 mmHg Recovery BP: 166.0/86.0 mmHg ECG Resting ECG: Sinus Carlos Alberto, RBBB, STT Abnormalities Clinical Reason for Termination: Patient reached target heart rate Exercise duration: 04:01 min Highest Stage Achieved: Exercise capacity: 7.0 METs Stress ECG Conclusion No BP's while walking due to fall risk. Max HR: 130 % of PM: 106 MET's: 7.0 Symptoms: No CP. Arrhythmias/Ectopy: 1 PVC, Atrial Couplet. ST-T Changes: <1.5mm ST Segment changes but baseline EKG abnormalities preclude diagnostic interpretation. Conclusion: Non-Diagnostic EKG due to baseline abnormalities. Reached target without chest pain. See nuclear report. Electronically signed by : Diony Borden MD 01/19/2021 13:42:13
== END ==
PROVIDERS: PCP Family Medicine; Visit Provider Internal Medicine Cardiovascular Disease
DX: R42 Dizziness and giddiness; R55 Syncope and collapse; R94.31 Abnormal electrocardiogram [ECG] [EKG]; I10 Essential (primary) hypertension; E11.9 Type 2 diabetes mellitus without complications; E78.5 Hyperlipidemia, unspecified; I65.29 Occlusion and stenosis of unspecified carotid artery; R06.83 Snoring; R53.83 Other fatigue; Z79.84 Long term (current) use of oral hypoglycemic drugs
CPT/HCPCS: 78452; 93017; A9502

== ENCOUNTER → 2021-01-25 15:22 | Outpatient (CLI) | payer MEDICARE, SELFPAY | PROVIDERS: Visit Provider Internal Medicine Cardiovascular Disease | DX: Z20.822 Contact with and (suspected) exposure to COVID-19 (principal) | CPT/HCPCS: C9803; U0003; U0005 ==

== ENCOUNTER 2021-01-26 07:01 | Day surgery (SDC) | payer MEDICARE, SELFPAY ==
[2021-01-26 07:32] VITALS: BMI 28.8
[2021-01-26 08:39] VITALS: BP 160/83; PULSE 57; RESP 16; TEMP 36.6; O2SAT 99
--- NOTE | 2021-01-26 08:55 | P.PCN_ITS ---
[facility] Loop Recorder Date: 01/26/21 Time: 08:55 Procedure Performed:: Implantation of loop recorder Indication:: Recurrent syncope Technique:: Patient was brought to the cardiac Logging Engineer. After informed consent obtained, 1% lidocaine with epinephrine was used to anesthetize the site along the left anterior aspect of the chest near the sternal border. Using the preformed scalpel, an incision was made and using the supplied preloaded apparatus, the loop recorder was placed subcutaneously without difficulty. Following the deployment of the loop recorder interrogation of the device was performed to ensure appropriate voltage was being detected (0.19 mV). Once this was verified, Steri-Strips were placed over the incision and the patient was prepped to discharge home. Patient tolerated the procedure well with minimal discomfort. Impression:: Successful implantation of loop recorder Serial Number:: [employer] Lux-Dx Model M301 Serial #[id number] Plan:: Routine postop care
[2021-01-26 09:13] VITALS: BP 156/74; PULSE 60; PULSE 77; RESP 20; O2SAT 99
[2021-01-26 09:16] VITALS: BP 156/70; PULSE 77; RESP 20; O2SAT 99
== END 2021-01-26 09:23 | disposition home or self-care (01) ==
LOC: CATHLAB 07:03
PROVIDERS: PCP Family Medicine; Visit Provider Internal Medicine
DX: R42 Dizziness and giddiness (principal); R00.1 Bradycardia, unspecified; E78.5 Hyperlipidemia, unspecified; I10 Essential (primary) hypertension; R94.31 Abnormal electrocardiogram [ECG] [EKG]; I65.29 Occlusion and stenosis of unspecified carotid artery
CPT/HCPCS: 33285

== ENCOUNTER → 2021-01-31 15:45 | Outpatient (CLI) | payer MEDICARE, SELFPAY ==
[2021-01-31 17:31] LABS: Chloride 99 mmol/L (98-107); Potassium 4.2 mmoL/L (3.5-5.1); Sodium 136 mmol/L (136-145)
[2021-01-31 17:34] LABS: Anion Gap 13.2 mEq/L (5-15); Blood Urea Nitrogen 15 mg/dl (9-20); Calcium 9.6 mg/dl (8.4-10.2); Carbon Dioxide 28 mmol/L (22.0-30.0); Estimated Glomerular Filt Rate 82 ml/min (>60); GFR (African American) 99 ML/MIN (>60); Glucose 214 mg/dl (74-100)
== END ==
PROVIDERS: Visit Provider Internal Medicine Cardiovascular Disease
DX: E78.5 Hyperlipidemia, unspecified (principal); I10 Essential (primary) hypertension; I65.29 Occlusion and stenosis of unspecified carotid artery; R00.1 Bradycardia, unspecified; R42 Dizziness and giddiness; R93.1 Abnormal findings on diagnostic imaging of heart and coronary circulation; R94.31 Abnormal electrocardiogram [ECG] [EKG]
CPT/HCPCS: 36415; 80048

== ENCOUNTER → 2021-03-16 15:25 | Outpatient (CLI) | payer MEDICARE, SELFPAY ==
[2021-03-16 16:32] LABS: Chloride 104 mmol/L (98-107); Potassium 4.9 mmoL/L (3.5-5.1); Sodium 138 mmol/L (136-145)
[2021-03-16 16:35] LABS: Blood Urea Nitrogen 22 mg/dl (9-20); Estimated Glomerular Filt Rate 72 ml/min (>60); GFR (African American) 87 ML/MIN (>60)
[2021-03-16 16:36] LABS: Anion Gap 12.9 mEq/L (5-15); Calcium 10.1 mg/dl (8.4-10.2); Carbon Dioxide 26 mmol/L (22.0-30.0); Glucose 123 mg/dl (74-100)
== END ==
PROVIDERS: Visit Provider Internal Medicine Cardiovascular Disease
DX: E11.9 Type 2 diabetes mellitus without complications (principal); E78.5 Hyperlipidemia, unspecified; I10 Essential (primary) hypertension; I25.10 Atherosclerotic heart disease of native coronary artery without angina pectoris; I65.29 Occlusion and stenosis of unspecified carotid artery; Z79.84 Long term (current) use of oral hypoglycemic drugs
CPT/HCPCS: 36415; 80048

== ENCOUNTER → 2021-04-19 17:37 | Outpatient (CLI) | payer MEDICARE, SELFPAY ==
[2021-04-19 19:02] LABS: Prostate Specific Ag, Diagnost < 0.064 ng/ml (0.0-4.0)
== END ==
PROVIDERS: Visit Provider Urology
DX: Z85.46 Personal history of malignant neoplasm of prostate (principal)
CPT/HCPCS: 36415; 84153

== ENCOUNTER → 2021-05-29 08:08 | Outpatient (CLI) | payer MEDICARE, SELFPAY ==
[2021-05-29 09:02] LABS: Hemoglobin A1C 8.5 % (4.0-6.0)
[2021-05-29 09:09] LABS: Chloride 103 mmol/L (98-107)
[2021-05-29 09:10] LABS: Potassium 4.6 mmoL/L (3.5-5.1); Sodium 136 mmol/L (136-145)
[2021-05-29 09:12] LABS: Alanine Aminotransferase 26 U/L (12-78); Anion Gap 11.6 mEq/L (5-15); Aspartate Amino Transferase 26 U/L (17-59); Blood Urea Nitrogen 19 mg/dl (9-20); Carbon Dioxide 26 mmol/L (22.0-30.0); Estimated Glomerular Filt Rate 72 ml/min (>60); GFR (African American) 87 ML/MIN (>60)
[2021-05-29 09:13] LABS: Albumin Level 4.2 g/dl (3.5-5.0); Albumin/Globulin Ratio 1.8 (1.1-1.8); Alkaline Phosphatase 67 U/L (38-126); Bilirubin,Total 0.6 mg/dl (0.2-1.3); Calcium 9.2 mg/dl (8.4-10.2); Chol/HDL Ratio 2.5 (1-3.5); Cholesterol 98 mg/dl (140-200); Globulin 2.3 g/dL (1.3-3.2); Glucose 167 mg/dl (74-100); HDL Cholesterol 40 mg/dl (40-60); Total Protein,Serum 6.5 g/dl (6.3-8.2); Triglycerides 112 mg/dl (30-150); VLDL Cholesterol 22 mg/dL (0-40)
[2021-05-29 09:24] LABS: Direct LDL Cholesterol 42.92 mg/dL (100-129)
== END ==
PROVIDERS: Visit Provider Family Medicine
DX: I10 Essential (primary) hypertension (principal); E11.9 Type 2 diabetes mellitus without complications; E78.5 Hyperlipidemia, unspecified; Z79.84 Long term (current) use of oral hypoglycemic drugs
CPT/HCPCS: 36415; 80053; 80061; 83036

== ENCOUNTER → 2021-08-11 10:22 | Outpatient (CLI) | payer MEDICARE, SELFPAY | PROVIDERS: Visit Provider Surgery | DX: Z01.812 Encounter for preprocedural laboratory examination (principal); Z11.52 Encounter for screening for COVID-19; Z86.010 Personal history of colon polyps | CPT/HCPCS: C9803; U0003; U0005 ==

== ENCOUNTER 2021-08-14 09:39 | Day surgery (SDC) | payer MEDICARE, SELFPAY ==
[2021-08-09 14:26] VITALS: BMI 27.3
[2021-08-14 09:57] VITALS: BP 161/92; PULSE 58; RESP 16; TEMP 36.4; O2SAT 97
[2021-08-14 10:13] LABS: POC Glucose,Bedside 184 (70-110)
--- NOTE | 2021-08-14 10:14 | P.PN_ITS ---
[facility] Anesthesia Checklist - Patient Identification Patient Identification: Arm Band, Guardian - Structural Data Admitted From: Home Planned Operative Procedure/s: Colonoscopy Consent for Planned Operative Procedure(s) Verified: Yes Verified Documents: Surgical Consent - NPO Status Verified Time NPO: 05:00 - Additional verifications Anesthesia Reactions: No Hx Blood Transfusions: No Blood Transfusion Reaction: No - Airway Assessment C-Spine Mobility Assessed: Yes TMJ Mobility Assessed: Yes Dentition: Dentures-good fit - Neurological Assessment Level of Consciousness: Awake, Alert, Appropriate - Anesthesia Plan Anesthesia Risk discussed: Yes ASA Class: II Anesthesia Type: MAC [facility] History I have reviewed the patient's past medical history: Yes Medical History: Reports:: Cancer (prostate), Diabetes Mellitus Type 2, Hyperlipidemia, Hypertension, MRSA Denies:: Diabetes Mellitus Type 1, Internal Pacemaker, Seizures *Have you ever received a pneumonia vaccine?: Yes *Have you received a flu vaccine this season?: Yes Other Medical History: Denies: Blood Transfusion Reaction Anesthesia experience/problems:: none Other Surgeries: Yes: No Previous Surgery, Cancer Surgery, Cholecystectomy, Colonoscopy. No: Pacemaker Amputation: No Fractures: No - *Social History Last grade of school completed: High school graduate Smoking Status: Former smoker # Packs/Day (cigarettes): 1 Alcohol Intake: never Substance Use Type: denies use *Occupational Status:: retired Housing: house Household Members: none *Travel in the last 8 weeks: None Family Hx:: Cancer, Coronary Artery Disease
[2021-08-14 10:16] VITALS: O2SAT 97
--- NOTE | 2021-08-14 10:44 | HMH.SCOPE ---
- Procedure: Date: 08/14/21 Patient Date of :: 03/10/1941 Procedure Performed:: Colonoscopy with polypectomy Indications:: History of colon polyps Performing Provider:: Eugene Cuellar MD Referring Provider:: . Sedation:: Monitored anesthesia care Procedure:: After informed consent was obtained the patient was taken to the endoscopy suite. Sedation ensued after the patient was transferred to the left lateral decubitus position. Pulse, blood pressure, and oxygen saturation were monitored throughout the procedure. Digital rectal exam revealed no significant abnormality. The colonoscope was placed in position. The entire colon was evaluated. The colonoscope was carefully removed and the patient was transferred to recovery in stable condition. Please see findings and specimens below for detail. Findings:: Hemorrhoidal tag/cushions (unchanged) Bowel preparation fair Fairly significant lack of relaxation Significant tortuosity Unchanged sigmoid diverticulosis Right colon polyp Specimens:: Right colon polyp (cold snare) Recommendations:: Timing of repeat colonoscopy is pending pathology but likely be between 2-3 years secondary to polyp noted on short-term repeat evaluation, tortuosity, and lack of relaxation. Complications:: No immediate Estimated blood obtained (mL): 1
[2021-08-14 10:48] VITALS: BP 82/48; PULSE 96; RESP 18; TEMP 36.3; O2SAT 97
[2021-08-14 10:58] VITALS: BP 85/63; PULSE 101; RESP 16; O2SAT 97
[2021-08-14 11:08] VITALS: BP 105/70; PULSE 78; RESP 16; O2SAT 98
[2021-08-14 11:18] VITALS: BP 129/78; PULSE 78; RESP 16; TEMP 36.3; O2SAT 98
== END 2021-08-14 11:32 | disposition home or self-care (01) ==
LOC: OUTP 09:40
PROVIDERS: PCP Family Medicine; Visit Provider Surgery
PROC: 0DJD8ZZ Inspection of Lower Intestinal Tract, Via Natural or Artificial Opening Endoscopic (ICD-10-PCS; CPT 45378; principal; 2021-08-14 10:30)
DX: Z12.11 Encounter for screening for malignant neoplasm of colon (principal); K64.9 Unspecified hemorrhoids; K63.89 Other specified diseases of intestine; K56.2 Volvulus; K57.30 Diverticulosis of large intestine without perforation or abscess without bleeding; K63.5 Polyp of colon; Z86.010 Personal history of colon polyps; E11.9 Type 2 diabetes mellitus without complications; E78.5 Hyperlipidemia, unspecified; I10 Essential (primary) hypertension; Z85.46 Personal history of malignant neoplasm of prostate; Z86.14 Personal history of Methicillin resistant Staphylococcus aureus infection; Z87.891 Personal history of nicotine dependence; Z80.9 Family history of malignant neoplasm, unspecified; Z82.49 Family history of ischemic heart disease and other diseases of the circulatory system
CPT/HCPCS: 45385; 82962; 88305

== ENCOUNTER → 2021-09-29 08:28 | Outpatient (CLI) | payer MEDICARE, SELFPAY | PROVIDERS: PCP Family Medicine; Visit Provider Internal Medicine | DX: Z01.812 Encounter for preprocedural laboratory examination (principal); Z20.822 Contact with and (suspected) exposure to COVID-19; I44.2 Atrioventricular block, complete; I45.10 Unspecified right bundle-branch block | CPT/HCPCS: C9803; U0003; U0005 ==

== ENCOUNTER 2021-10-01 10:10 | Day surgery (SDC) | payer MEDICARE, SELFPAY ==
[2021-10-01] VITALS (7 sets, daily range): BP systolic 112–136; BP diastolic 61–74; PULSE 58–98; RESP 18–20; TEMP 36.9; O2SAT 93–99; BMI 27.5
--- NOTE | 2021-10-01 | IR_ITS ---
APPROVED REPORT Patient Location: Outpatient Fundraising Officer: OSCAR Mcmahon RT (R) PROCEDURES 1. Pocket formation for Permanent Pacemaker Placement. 2. Placement of an atrial sensing and pacing coil into the right atrial appendage. 3. Placement of a ventricular sensing and pacing coil in the right ventricular apex. 4. Permanent Pacemaker Placement. 5. Removal of loop recorder INDICATION Sinus Bradycardia Informed consent was obtained prior to the procedure. COMPLICATIONS None Estimated Blood Loss: Less than 10 ML TECHNIQUE 1% Lidocaine with epinephrine used to anesthetized the left anterior aspect of the chest. Scalpel was used to make the initial cutaneous incision while electrocautery was used to dissect down tinto the fascia. The fascia was lifted off the pectoralis muscle and digitally manipulated creating a pocket for the pacemaker. The patient was then placed in Trendelenburg position and the subclavian vein was accessed twice via the Selinger technique, there are two wires in the vein. A 6 Russian sheath was placed under fluoroscopic guidance into the subclavian vein over one of the wires while keeping the other wire in place within the subclavian vein. The dilator was removed from the sheath. Using fluoroscopic guidance, the ventricular lead was placed into the right ventricular apex, screwed and secured into place. Electronic interrogation proved acceptable thresholds and voltage within the lead. Using 3-0 silk, the ventricular lead was then secured into place. Lead was secured to the facia using the 3-0 silk. Following this, the sheath was pealed away. An additional 6 Russian fresh sheath and dilator was placed over the existing wire. Using fluoroscopic guidance, the atrial lead was the placed into the right atrial appendage and screwed and secured in place. Electrical interrogation demonstrated acceptable thresholds and voltage number. The atrial lead was then secured into place using 3-0 silk. 1 gram of Ancef was used to flush the pocket. Following the pacemaker generator being secured to the fascia and in place, Monocryl was used to close the subcutaneous layers while davin were used to close the cutaneous layer. A pressure dressing was placed and the patient was transferred to the postop holding area in stable condition for postoperative care. INTERROGATION Generator Model number: L311 Generator Serial number: [id number] Atrial lead model number: 7841 Atrial lead serial number: [id number] P-wave: 2.5 mv Impedence: 900 ohms Threshold: 1.5v @ 0.4 ms Right Ventricular lead model number: 7842 Right Ventricular lead serial number: [id number] R-wave: 8.5 mv Impedence: 900 ohms Threshold: 0.8 v @ 0.4 ms Pacing Parameters: Mode: DDDR Base/Max Track:60 ppm / 130 ppm No diaphragmatic stimulation at 10 volts. IMPRESSION 1. Successful pocket formation for Permanent Pacemaker Placement. 2. Successful placement of an atrial sensing and pacing coil into the right atrial appendage. 3. Successful placement of a ventricular sensing and pacing coil in the right ventricular apex. 4. Successful permanent Pacemaker Placement. 5. Successful removal of loop recorder PLAN 1. Post Op Wound Care Electronically signed by : Con Lan MD 10/02/2021 14:00:20
--- NOTE | 2021-10-01 08:59 | P.PN_ITS ---
[facility] Anesthesia Checklist - Patient Identification Patient Identification: Arm Band, Verbal (Name & ) - Structural Data Admitted From: Home Planned Operative Procedure/s: Pacemaker Placement Consent for Planned Operative Procedure(s) Verified: Yes Verified Documents: Surgical Consent - NPO Status Verified Time NPO: 00:00 - Additional verifications Anesthesia Reactions: No Hx Blood Transfusions: No Blood Transfusion Reaction: No - Airway Assessment C-Spine Mobility Assessed: Yes TMJ Mobility Assessed: Yes - Neurological Assessment Level of Consciousness: Awake - Anesthesia Plan ASA Class: III Anesthesia Type: MAC [facility] History I have reviewed the patient's past medical history: Yes Medical History: Reports:: Cancer, Diabetes Mellitus Type 2, Hyperlipidemia, Hypertension, MRSA Denies:: Diabetes Mellitus Type 1, Internal Pacemaker, Seizures *Have you ever received a pneumonia vaccine?: Yes *Have you received a flu vaccine this season?: Yes Other Medical History: Denies: Blood Transfusion Reaction Anesthesia experience/problems:: none Other Surgeries: Yes: No Previous Surgery, Cancer Surgery, Cholecystectomy, Colonoscopy. No: Pacemaker Amputation: No Fractures: No - *Social History Smoking Status: Former smoker # Packs/Day (cigarettes): 1 Alcohol Intake: never Substance Use Type: denies use *Occupational Status:: retired Housing: house Household Members: none *Travel in the last 8 weeks: None Family Hx:: Cancer, Coronary Artery Disease
[2021-10-01 10:57] LABS: Basophils % 0.8 % (0.1-2.0); Eosinophils # 0.1 K/mm3 (0.0-0.4); Eosinophils % 2.4 % (0.1-12.0); Hematocrit 41.8 % (42.0-52.0); Hemoglobin 13.2 g/dL (14.1-18.0); Lymphocytes # 1.6 K/mm3 (0.7-4.5); Lymphocytes % 29.2 % (10-50); Mean Corpuscular HGB Conc 31.6 g/dL (31.8-35.4); Mean Corpuscular Hemoglobin 31.7 pg (27.0-31.2); Mean Corpuscular Volume 100.4 fl (80-94); Mean Platelet Volume 8.4 fl (7.4-10.4); Monocytes # 0.3 K/mm3 (0.1-1.0); Neutrophils # 3.5 K/mm3 (1.8-7.8); Neutrophils % 62.6 % (37.0-80.0); Platelet Count 238 K/mm3 (142-424); Red Blood Count 4.16 M/mm3 (4.60-6.20); Red Cell Distribution Width 14.3 % (11.5-17.5); White Blood Count 5.6 K/mm3 (4.8-10.8)
[2021-10-01 11:01] LABS: Chloride 103 mmol/L (98-107); Potassium 4.4 mmoL/L (3.5-5.1); Sodium 138 mmol/L (136-145)
[2021-10-01 11:04] LABS: Anion Gap 12.4 mEq/L (5-15); Blood Urea Nitrogen 30 mg/dl (9-20); Calcium 10.2 mg/dl (8.4-10.2); Carbon Dioxide 27 mmol/L (22.0-30.0); Creatinine Clearance Estimated 50 mL/min (50-200); Estimated Glomerular Filt Rate 49 ml/min (>60); GFR (African American) 59 ML/MIN (>60); Glucose 183 mg/dl (74-100)
--- NOTE | 2021-10-01 13:15 | SUR.OPER ---
loop recorder removed during procedure.
--- NOTE | 2021-10-01 13:17 | SUR.OPER ---
2 davin for loop removal closure.
--- NOTE | 2021-10-01 13:18 | XR_ITS ---
FINAL REPORT CLINICAL HISTORY: Confirm pacemaker/AID placement COMPARISON: December 30, 2020 FINDINGS: A single portable view of the chest was obtained. There is been interval placement of a left subclavian pacemaker. The heart size and pulmonary vascularity are within normal limits. The mediastinum is within normal limits. There is mild right lung base atelectasis. There is no pneumothorax. The bony thorax is intact. IMPRESSION: Interval placement of left subclavian pacemaker. No pneumothorax. Mild right lung base atelectasis. Reviewed, Interpreted and Dictated by Abdullahi Caceres III, MD Transcribed by Quin Plaza Authenticated and [facility]
== END 2021-10-01 15:09 | disposition home or self-care (01) ==
LOC: CATHLAB 10:11
PROVIDERS: PCP Family Medicine; Visit Provider Internal Medicine
DX: I44.2 Atrioventricular block, complete (principal); I44.5 Left posterior fascicular block; I45.10 Unspecified right bundle-branch block; E11.9 Type 2 diabetes mellitus without complications; Z79.84 Long term (current) use of oral hypoglycemic drugs; I10 Essential (primary) hypertension; Z79.899 Other long term (current) drug therapy; R94.31 Abnormal electrocardiogram [ECG] [EKG]; I25.10 Atherosclerotic heart disease of native coronary artery without angina pectoris; Z87.891 Personal history of nicotine dependence
CPT/HCPCS: 33208; 71045; 80048; 85025; C1785; C1898

== ENCOUNTER → 2021-11-22 08:13 | Outpatient (CLI) | payer MEDICARE, SELFPAY ==
[2021-11-22 09:38] LABS: Chloride 104 mmol/L (98-107)
[2021-11-22 09:39] LABS: Potassium 4.9 mmoL/L (3.5-5.1); Sodium 138 mmol/L (136-145)
[2021-11-22 09:41] LABS: Alanine Aminotransferase 29 U/L (12-78); Albumin Level 4.3 g/dl (3.5-5.0); Alkaline Phosphatase 77 U/L (38-126); Anion Gap 12.9 mEq/L (5-15); Aspartate Amino Transferase 38 U/L (17-59); Bilirubin,Total 0.4 mg/dl (0.2-1.3); Blood Urea Nitrogen 21 mg/dl (9-20); Calcium 10.1 mg/dl (8.4-10.2); Carbon Dioxide 26 mmol/L (22.0-30.0); Cholesterol 74 mg/dl (140-200); Estimated Glomerular Filt Rate 65 ml/min (>60); GFR (African American) 78 ML/MIN (>60); Globulin 2.2 g/dL (1.3-3.2); Glucose 202 mg/dl (74-100); Total Protein,Serum 6.5 g/dl (6.3-8.2); Triglycerides 57 mg/dl (30-150); VLDL Cholesterol 11 mg/dL (0-40)
[2021-11-22 09:42] LABS: Chol/HDL Ratio 2.2 (1-3.5); HDL Cholesterol 34 mg/dl (40-60); Hemoglobin A1C 8.8 % (4.0-6.0)
[2021-11-22 09:50] LABS: Uric Acid 5.7 mg/dl (3.5-8.5)
[2021-11-23 10:47] LABS: Direct LDL Cholesterol 28 mg/dL (100-129)
== END ==
PROVIDERS: PCP Family Medicine; Visit Provider Family Medicine
DX: E11.9 Type 2 diabetes mellitus without complications (principal); I10 Essential (primary) hypertension; E79.0 Hyperuricemia without signs of inflammatory arthritis and tophaceous disease; E78.5 Hyperlipidemia, unspecified; Z79.84 Long term (current) use of oral hypoglycemic drugs
CPT/HCPCS: 36415; 80053; 80061; 83036; 84550

== ENCOUNTER → 2022-02-14 08:05 | Outpatient (CLI) | payer MEDICARE, SELFPAY ==
[2022-02-14 10:16] LABS: Chloride 101 mmol/L (98-107); Sodium 139 mmol/L (136-145)
[2022-02-14 10:17] LABS: Potassium 4.5 mmoL/L (3.5-5.1)
[2022-02-14 10:20] LABS: Anion Gap 15.5 mEq/L (5-15); Blood Urea Nitrogen 25 mg/dl (9-20); Calcium 10.1 mg/dl (8.4-10.2); Carbon Dioxide 27 mmol/L (22.0-30.0); Estimated Glomerular Filt Rate 58 ml/min (>60); GFR (African American) 71 ML/MIN (>60); Glucose 166 mg/dl (74-100)
== END ==
PROVIDERS: PCP Family Medicine; Visit Provider Family Medicine
DX: E11.9 Type 2 diabetes mellitus without complications (principal); Z79.84 Long term (current) use of oral hypoglycemic drugs
CPT/HCPCS: 36415; 80048; 83036

== ENCOUNTER → 2022-02-25 14:30 | Outpatient (CLI) | payer MEDICARE, SELFPAY ==
--- NOTE | 2022-02-25 14:32 | CA_ITS ---
FINAL REPORT CLINICAL HISTORY: NOMI FINDINGS: An ultrasound of the carotid arteries was performed. Duplex Doppler evaluation with spectral analysis was performed. The peak systolic velocity of the right common carotid artery is 75 cm/s. The peak systolic velocity of the right internal carotid artery is 67 cm/s and end diastolic velocity 25 cm/s. A small amount of plaque is present. The right external carotid artery is patent. The right vertebral artery is patent with antegrade flow. ICA/CCA ratio: 0.89 The peak systolic velocity of the left common carotid artery is 79 cm/s. The peak systolic velocity of the left internal carotid artery is 97 cm/s and end diastolic velocity 33 cm/s. A small amount of plaque is present. The left external carotid artery is patent. The left vertebral artery is patent with antegrade flow. ICA/CCA ratio: 1.22 Bilateral patent vertebral arteries with antegrade flow. IMPRESSION: Less than 50% bilateral carotid stenosis. Reviewed, Interpreted and Dictated by Abdullahi Caceres III, MD Transcribed by Colt Lawson Authenticated and [facility]
== END ==
PROVIDERS: PCP Family Medicine; Visit Provider Nurse Practitioner
DX: R42 Dizziness and giddiness; I65.23 Occlusion and stenosis of bilateral carotid arteries
CPT/HCPCS: 93880

== ENCOUNTER → 2022-04-09 16:07 | Outpatient (CLI) | payer MEDICARE, SELFPAY ==
[2022-04-09 19:39] LABS: Prostate Specific Ag Screen < 0.1 ng/ml (0.0-4.0)
== END ==
PROVIDERS: PCP Family Medicine; Visit Provider Urology
DX: C61 Malignant neoplasm of prostate (principal); Z12.5 Encounter for screening for malignant neoplasm of prostate
CPT/HCPCS: 36415; G0103

== ENCOUNTER → 2022-05-16 08:24 | Outpatient (CLI) | payer MEDICARE, SELFPAY ==
[2022-05-16 09:25] LABS: Alanine Aminotransferase 24 U/L (12-78); Albumin Level 4.6 g/dl (3.5-5.0); Alkaline Phosphatase 71 U/L (38-126); Anion Gap 14.3 mEq/L (5-15); Aspartate Amino Transferase 26 U/L (17-59); Bilirubin,Total 0.6 mg/dl (0.2-1.3); Blood Urea Nitrogen 25 mg/dl (9-20); Calcium 9.8 mg/dl (8.4-10.2); Carbon Dioxide 23 mmol/L (22.0-30.0); Chloride 108 mmol/L (98-107); Chol/HDL Ratio 2.1 (1-3.5); Cholesterol 80 mg/dl (140-200); Estimated Glomerular Filt Rate 64 ml/min (>60); GFR (African American) 78 ML/MIN (>60); Globulin 2.3 g/dL (1.3-3.2); Glucose 152 mg/dl (74-100); HDL Cholesterol 38 mg/dl (40-60); Potassium 4.3 mmoL/L (3.5-5.1); Sodium 141 mmol/L (136-145); Total Protein,Serum 6.9 g/dl (6.3-8.2); Triglycerides 107 mg/dl (30-150); VLDL Cholesterol 21 mg/dL (0-40)
[2022-05-16 09:36] LABS: Direct LDL Cholesterol 30.02 mg/dL (100-129)
[2022-05-16 09:38] LABS: Hemoglobin A1C 7.4 % (4.0-6.0)
== END ==
PROVIDERS: PCP Family Medicine; Visit Provider Family Medicine
DX: E11.9 Type 2 diabetes mellitus without complications (principal); Z79.84 Long term (current) use of oral hypoglycemic drugs
CPT/HCPCS: 36415; 80053; 80061; 83036

== ENCOUNTER → 2022-08-15 08:40 | Outpatient (CLI) | payer MEDICARE, SELFPAY ==
[2022-08-15 09:43] LABS: Anion Gap 17.5 mEq/L (5-15); Blood Urea Nitrogen 25 mg/dl (9-20); Calcium 9.5 mg/dl (8.4-10.2); Carbon Dioxide 26 mmol/L (22.0-30.0); Chloride 100 mmol/L (98-107); Estimated Glomerular Filt Rate 58 ml/min (>60); GFR (African American) 70 ML/MIN (>60); Glucose 156 mg/dl (74-100); Potassium 4.5 mmoL/L (3.5-5.1); Sodium 139 mmol/L (136-145)
[2022-08-15 10:10] LABS: Hemoglobin A1C 7.3 % (4.0-6.0)
== END ==
PROVIDERS: PCP Family Medicine; Visit Provider Family Medicine
DX: E11.9 Type 2 diabetes mellitus without complications (principal); Z79.84 Long term (current) use of oral hypoglycemic drugs
CPT/HCPCS: 36415; 80048; 83036

== ENCOUNTER → 2022-11-14 07:54 | Outpatient (CLI) | payer MEDICARE, SELFPAY ==
[2022-11-14 08:24] LABS: Hemoglobin A1C 7.7 % (4.0-6.0)
[2022-11-14 08:57] LABS: Chloride 107 mmol/L (98-107)
[2022-11-14 08:58] LABS: Potassium 4.4 mmoL/L (3.5-5.1); Sodium 140 mmol/L (136-145)
[2022-11-14 09:00] LABS: Alanine Aminotransferase 28 U/L (12-78); Aspartate Amino Transferase 30 U/L (17-59); Blood Urea Nitrogen 29 mg/dl (9-20); Estimated Glomerular Filt Rate 72 ml/min (>60); GFR (African American) 87 ML/MIN (>60)
[2022-11-14 09:01] LABS: Albumin/Globulin Ratio 1.5 (1.1-1.8); Alkaline Phosphatase 76 U/L (38-126); Anion Gap 14.4 mEq/L (5-15); Bilirubin,Total 0.7 mg/dl (0.2-1.3); Carbon Dioxide 23 mmol/L (22.0-30.0); Chol/HDL Ratio 2.7 (1-3.5); Cholesterol 83 mg/dl (140-200); Globulin 2.6 g/dL (1.3-3.2); Glucose 169 mg/dl (74-100); HDL Cholesterol 31 mg/dl (40-60); Total Protein,Serum 6.6 g/dl (6.3-8.2); Triglycerides 129 mg/dl (30-150); VLDL Cholesterol 26 mg/dL (0-40)
[2022-11-14 09:12] LABS: Direct LDL Cholesterol 35.58 mg/dL (100-129)
== END ==
PROVIDERS: PCP Family Medicine; Visit Provider Family Medicine
DX: E11.9 Type 2 diabetes mellitus without complications (principal); I10 Essential (primary) hypertension; E78.5 Hyperlipidemia, unspecified; Z79.84 Long term (current) use of oral hypoglycemic drugs
CPT/HCPCS: 36415; 80053; 80061; 83036

== ENCOUNTER → 2023-02-13 08:42 | Outpatient (CLI) | payer MEDICARE, SELFPAY ==
[2023-02-13 09:59] LABS: Alanine Aminotransferase 30 U/L (12-78); Albumin Level 4.2 g/dl (3.5-5.0); Albumin/Globulin Ratio 1.8 (1.1-1.8); Alkaline Phosphatase 68 U/L (38-126); Anion Gap 15.1 mEq/L (5-15); Aspartate Amino Transferase 33 U/L (17-59); Bilirubin,Total 0.5 mg/dl (0.2-1.3); Blood Urea Nitrogen 19 mg/dl (9-20); Calcium 9.6 mg/dl (8.4-10.2); Carbon Dioxide 22 mmol/L (22.0-30.0); Chloride 107 mmol/L (98-107); Chol/HDL Ratio 2.6 (1-3.5); Cholesterol 85 mg/dl (140-200); Estimated Glomerular Filt Rate 58 ml/min (>60); GFR (African American) 70 ML/MIN (>60); Globulin 2.4 g/dL (1.3-3.2); Glucose 117 mg/dl (74-100); HDL Cholesterol 33 mg/dl (40-60); Potassium 4.1 mmoL/L (3.5-5.1); Sodium 140 mmol/L (136-145); Total Protein,Serum 6.6 g/dl (6.3-8.2); Triglycerides 94 mg/dl (30-150); VLDL Cholesterol 19 mg/dL (0-40)
[2023-02-13 10:10] LABS: Direct LDL Cholesterol 39.93 mg/dL (100-129)
[2023-02-13 19:18] LABS: Hemoglobin A1C 6.4 % (4.0-6.0)
== END ==
PROVIDERS: PCP Family Medicine; Visit Provider Family Medicine
DX: E11.9 Type 2 diabetes mellitus without complications (principal); E78.5 Hyperlipidemia, unspecified; I10 Essential (primary) hypertension; Z79.84 Long term (current) use of oral hypoglycemic drugs
CPT/HCPCS: 36415; 80053; 80061; 83036

== ENCOUNTER 2023-04-08 09:01 | Outpatient (CLI) | payer MEDICARE, SELFPAY ==
[2023-04-08 10:37] LABS: Prostate Specific Ag, Diagnost < 0.064 ng/ml (0.0-4.0)
== END 2023-04-08 23:59 ==
LOC: LAB 09:05
PROVIDERS: Urology; PCP Family Medicine; Visit Provider Family Medicine
DX: C61 Malignant neoplasm of prostate (principal)
CPT/HCPCS: 36415; 84153

== ENCOUNTER 2023-05-16 08:26 | Outpatient (CLI) | payer MEDICARE, SELFPAY ==
[2023-05-16 09:06] LABS: Hemoglobin A1C 6.3 % (4.0-6.0)
[2023-05-16 09:16] LABS: Creatinine,Urine Random 111 mg/dL (Not Estab.)
[2023-05-16 09:29] LABS: Alanine Aminotransferase 32 U/L (12-78); Albumin Level 4.1 g/dl (3.5-5.0); Albumin/Globulin Ratio 1.5 (1.1-1.8); Alkaline Phosphatase 68 U/L (38-126); Anion Gap 10.2 mEq/L (5-15); Aspartate Amino Transferase 30 U/L (17-59); Bilirubin,Total 0.6 mg/dl (0.2-1.3); Blood Urea Nitrogen 17 mg/dl (9-20); Calcium 9.9 mg/dl (8.4-10.2); Carbon Dioxide 26 mmol/L (22.0-30.0); Chloride 108 mmol/L (98-107); Chol/HDL Ratio 2.9 (1-3.5); Cholesterol 97 mg/dl (140-200); Estimated Glomerular Filt Rate 58 ml/min (>60); GFR (African American) 70 ML/MIN (>60); Globulin 2.7 g/dL (1.3-3.2); Glucose 141 mg/dl (74-100); HDL Cholesterol 34 mg/dl (40-60); Potassium 4.2 mmoL/L (3.5-5.1); Sodium 140 mmol/L (136-145); Total Protein,Serum 6.8 g/dl (6.3-8.2); Triglycerides 76 mg/dl (30-150); VLDL Cholesterol 15 mg/dL (0-40)
[2023-05-16 09:40] LABS: Direct LDL Cholesterol 45.85 mg/dL (100-129)
== END 2023-05-16 23:59 ==
LOC: LAB 08:27
PROVIDERS: PCP Family Medicine; Visit Provider Family Medicine
DX: E11.9 Type 2 diabetes mellitus without complications (principal); I10 Essential (primary) hypertension; E78.5 Hyperlipidemia, unspecified; Z79.84 Long term (current) use of oral hypoglycemic drugs
CPT/HCPCS: 36415; 80053; 80061; 82043; 82570; 83036

== ENCOUNTER 2023-05-26 15:32 | Emergency (ER) | payer MEDICARE, SELFPAY ==
[2023-05-26 15:37] VITALS: BMI 28.1
[2023-05-26] MEDS: TET/DIPHTH/PERT-ADULT 0.5ML SYRINGE 0.5 ML IM (15:40)
[2023-05-26 15:48] VITALS: BP 131/81; PULSE 63; RESP 16; O2SAT 97; BMI 28.1
[2023-05-26 15:50] VITALS: BP 131/81; PULSE 96; RESP 16; TEMP -17.7; TEMP 0; O2SAT 97
== END 2023-05-26 15:52 | disposition home or self-care (01) ==
LOC: UTC 15:36
PROVIDERS: Emergency Provider Nurse Practitioner Family; PCP Family Medicine
DX: Z23 Encounter for immunization (principal)
CPT/HCPCS: 90471; 90715; 99212; G0463

== ENCOUNTER 2023-08-12 09:40 | Day surgery (SDC) | payer MEDICARE, SELFPAY ==
[2023-08-11 10:30] VITALS: BMI 27.4
[2023-08-12 09:54] VITALS: BP 149/83; PULSE 94; RESP 18; TEMP 36.1; O2SAT 98
--- NOTE | 2023-08-12 10:02 | HMH.SCOPE ---
Procedure: Date: 08/12/23 Patient Date of :: 03/10/1941 Procedure Performed:: Colonoscopy with polypectomy Indications:: History of colon polyps Colonoscopy in August 2021 was somewhat complicated by poor relaxation and tortuosity. Sigmoid diverticulosis and hemorrhoidal cushions/tags noted. An adenoma of the right colon was excised. Performing Provider:: Eugene Cuellar MD Referring Provider:: . Sedation:: Monitored anesthesia care Procedure:: After informed consent was obtained the patient was taken to the endoscopy suite. Sedation ensued after the patient was transferred to the left lateral decubitus position. Pulse, blood pressure, and oxygen saturation were monitored throughout the procedure. Digital rectal exam revealed no significant abnormality. The colonoscope was placed in position. The entire colon was evaluated. The colonoscope was carefully removed and the patient was transferred to recovery in stable condition. Please see findings and specimens below for detail. Findings:: Bowel preparation fair Hemorrhoidal tag/cushions Scattered diverticulosis (most pronounced in sigmoid) Significant spasticity/lack of relaxation Moderate tortuosity Sessile 9 mm polyp at 10 cm Specimens:: Sessile 9 mm polyp at 10 cm (cold snare) Recommendations:: Timing of repeat colonoscopy is pending pathology but will likely be around 3 years if patient's overall health remains stable. Complications:: No immediate Estimated blood obtained (mL): 1 Colonoscopy Component Colonoscopy Component Was a colonoscopy performed during today's procedure?: Yes Recommended follow up colonoscopy of at least 10 years?: No If no, follow up colonoscopy recommended in ___ years?: (See above) Reason for not recommending >/= 10 yr follow-up interval?: (See above)
[2023-08-12] MEDS: LACTATED RINGERS 1000ML 1,000 ML 25 ML IV (10:03)
--- NOTE | 2023-08-12 10:11 | EXP.ANES.CKL ---
[facility] Disclaimer: The information contained in this section may have been updated after the patient was seen, as this information can be updated by other users. Medical History Pacemaker Sinus pause Left posterior fascicular block Right bundle branch block Elevated coronary artery calcium score Sinus bradycardia Abnormal electrocardiogram [ECG] [EKG] Surgical History Hx of colonoscopy Family History Other Cancer Diabetes Hypertension Social History (Updated 08/12/23 @ 09:56 by Roselia Hernandez RN) Smoking Status: Former smoker alcohol intake: never substance use type: denies use current occupational status: retired Travel in the last 8 weeks: None household members: none housing: house current occupational exposures/hazards: No caffeine: Yes [facility] Anesthesia Checklist Patient Identification Patient Identification: Arm Band, Family and Verbal (Name & ) Structural Data Admitted From: Home Planned Operative Procedure/s: Colonoscopy Consent for Planned Operative Procedure(s) Verified: Yes Verified Documents: Surgical Consent and History and Physical NPO Status Verified Time NPO: 05:00 Chart Verification Results Verified: CBC, BMP and ECG Additional verifications Fingerstick Blood Glucose: 105 Patient : No Anesthesia Reactions: No Hx Blood Transfusions: No Blood Transfusion Reaction: No Cardiovascular Assessment Heart Sounds: S1 & S2 Pulse Rhythm: Irregular Peripheral Edema: No Airway Assessment Mallampati Score:: Class III C-Spine Mobility Assessed: Yes TMJ Mobility Assessed: Yes Dentition: Poor Dentition (Partial on bottom in place. Nothing loose per pt.) Neurological Assessment Level of Consciousness: Awake, Alert, Appropriate and Follows Commands Hx Seizures: No Numbness or tingling in extremities: No Anesthesia Plan Anesthesia Risk discussed: Yes Anesthesia Plan: Verified ASA Class: III Anesthesia Type: MAC
[2023-08-12 10:18] LABS: POC Glucose,Bedside 105 (70-110)
[2023-08-12 10:19] VITALS: O2SAT 98
[2023-08-12 10:41] VITALS: BP 111/73; PULSE 68; RESP 16; TEMP 36.2; O2SAT 96
[2023-08-12 10:51] VITALS: BP 130/47; PULSE 85; RESP 16; O2SAT 96
[2023-08-12 10:56] VITALS: BP 127/76; PULSE 62; RESP 16; O2SAT 96
[2023-08-12 11:00] VITALS: BP 130/79; PULSE 60; RESP 18; O2SAT 98
== END 2023-08-12 11:12 | disposition home or self-care (01) ==
PROVIDERS: PCP Family Medicine; Visit Provider Surgery
PROC: 0DJD8ZZ Inspection of Lower Intestinal Tract, Via Natural or Artificial Opening Endoscopic (ICD-10-PCS; CPT 45378; principal; 2023-08-12 10:30)
DX: Z12.11 Encounter for screening for malignant neoplasm of colon (principal); Z86.010 Personal history of colon polyps; K64.4 Residual hemorrhoidal skin tags; K57.30 Diverticulosis of large intestine without perforation or abscess without bleeding; K63.89 Other specified diseases of intestine; Z79.899 Other long term (current) drug therapy
CPT/HCPCS: 45385; 82962

== ENCOUNTER 2023-08-20 08:47 | Outpatient (CLI) | payer MEDICARE, SELFPAY ==
[2023-08-20 09:41] LABS: Alanine Aminotransferase 31 U/L (12-78); Albumin Level 4.2 g/dl (3.5-5.0); Albumin/Globulin Ratio 1.8 (1.1-1.8); Alkaline Phosphatase 71 U/L (38-126); Anion Gap 14.3 mEq/L (5-15); Aspartate Amino Transferase 32 U/L (17-59); Bilirubin,Total 0.7 mg/dl (0.2-1.3); Blood Urea Nitrogen 21 mg/dl (9-20); Calcium 9.7 mg/dl (8.4-10.2); Carbon Dioxide 24 mmol/L (22.0-30.0); Chloride 107 mmol/L (98-107); Estimated Glomerular Filt Rate 58 ml/min (>60); GFR (African American) 70 ML/MIN (>60); Globulin 2.4 g/dL (1.3-3.2); Glucose 94 mg/dl (74-100); Potassium 4.3 mmoL/L (3.5-5.1); Sodium 141 mmol/L (136-145); Total Protein,Serum 6.6 g/dl (6.3-8.2)
[2023-08-20 10:20] LABS: Hemoglobin A1C 6.1 % (4.0-6.0)
== END 2023-08-20 23:59 | disposition home or self-care (01) ==
LOC: LAB 08:48
PROVIDERS: PCP Family Medicine; Visit Provider Family Medicine
DX: E11.9 Type 2 diabetes mellitus without complications (principal); I10 Essential (primary) hypertension; Z79.899 Other long term (current) drug therapy
CPT/HCPCS: 36415; 80053; 83036

== ENCOUNTER 2023-11-21 08:01 | Outpatient (CLI) | payer MEDICARE, SELFPAY ==
[2023-11-21 08:40] LABS: Hemoglobin A1C 6.7 % (4.0-6.0)
[2023-11-21 09:17] LABS: Albumin Level 4.2 g/dl (3.5-5.0); Chloride 107 mmol/L (98-107)
[2023-11-21 09:18] LABS: Potassium 4.2 mmoL/L (3.5-5.1); Sodium 139 mmol/L (136-145)
[2023-11-21 09:20] LABS: Alanine Aminotransferase 26 U/L (12-78); Anion Gap 11.2 mEq/L (5-15); Aspartate Amino Transferase 27 U/L (17-59); Blood Urea Nitrogen 20 mg/dl (9-20); Carbon Dioxide 25 mmol/L (22.0-30.0); Estimated Glomerular Filt Rate 53 ml/min (>60); GFR (African American) 64 ML/MIN (>60)
[2023-11-21 09:21] LABS: Albumin/Globulin Ratio 1.7 (1.1-1.8); Alkaline Phosphatase 73 U/L (38-126); Bilirubin,Total 0.9 mg/dl (0.2-1.3); Calcium 9.7 mg/dl (8.4-10.2); Chol/HDL Ratio 2.9 (1-3.5); Cholesterol 90 mg/dl (140-200); Globulin 2.5 g/dL (1.3-3.2); Glucose 121 mg/dl (74-100); HDL Cholesterol 31 mg/dl (40-60); Total Protein,Serum 6.7 g/dl (6.3-8.2); Triglycerides 88 mg/dl (30-150); VLDL Cholesterol 18 mg/dL (0-40)
[2023-11-21 09:32] LABS: Direct LDL Cholesterol 35.23 mg/dL (100-129)
== END 2023-11-21 23:59 | disposition home or self-care (01) ==
LOC: LAB 08:03
PROVIDERS: PCP Family Medicine; Visit Provider Family Medicine
DX: E11.9 Type 2 diabetes mellitus without complications (principal); I10 Essential (primary) hypertension; E78.5 Hyperlipidemia, unspecified; Z79.84 Long term (current) use of oral hypoglycemic drugs; Z87.891 Personal history of nicotine dependence
CPT/HCPCS: 36415; 80053; 80061; 83036

== ENCOUNTER 2024-04-20 16:31 | Outpatient (CLI) | payer MEDICARE, SELFPAY ==
[2024-04-20 18:28] LABS: Prostate Specific Ag, Diagnost < 0.064 ng/ml (0.0-4.0)
== END 2024-04-20 23:59 | disposition home or self-care (01) ==
LOC: LAB 16:33
PROVIDERS: PCP Family Medicine; Visit Provider Urology
DX: C61 Malignant neoplasm of prostate (principal)
CPT/HCPCS: 36415; 84153

== ENCOUNTER 2024-05-28 09:56 | Outpatient (CLI) | payer MEDICARE, SELFPAY ==
[2024-05-28 11:21] LABS: Albumin Level 4.1 g/dl (3.5-5.0); Chloride 109 mmol/L (98-107); Sodium 140 mmol/L (136-145)
[2024-05-28 11:22] LABS: Potassium 4.4 mmoL/L (3.5-5.1)
[2024-05-28 11:24] LABS: Alanine Aminotransferase 39 U/L (12-78); Albumin/Globulin Ratio 1.9 (1.1-1.8); Anion Gap 11.4 mEq/L (5-15); Aspartate Amino Transferase 37 U/L (17-59); Blood Urea Nitrogen 26 mg/dl (9-20); Carbon Dioxide 24 mmol/L (22.0-30.0); Estimated Glomerular Filt Rate 64 ml/min (>60); GFR (African American) 78 ML/MIN (>60); Globulin 2.2 g/dL (1.3-3.2); Total Protein,Serum 6.3 g/dl (6.3-8.2)
[2024-05-28 11:25] LABS: Alkaline Phosphatase 73 U/L (38-126); Bilirubin,Total 0.6 mg/dl (0.2-1.3); Calcium 9.7 mg/dl (8.4-10.2); Chol/HDL Ratio 2.9 (1-3.5); Cholesterol 78 mg/dl (140-200); Glucose 139 mg/dl (74-100); HDL Cholesterol 27 mg/dl (40-60); Triglycerides 134 mg/dl (30-150); VLDL Cholesterol 27 mg/dL (0-40)
[2024-05-28 11:41] LABS: Direct LDL Cholesterol < 30.00 mg/dL (100-129)
[2024-05-28 12:20] LABS: Hemoglobin A1C 6.6 % (4.0-6.0)
== END 2024-05-28 23:59 | disposition home or self-care (01) ==
LOC: LAB 09:59
PROVIDERS: PCP Family Medicine; Visit Provider Family Medicine
DX: E78.5 Hyperlipidemia, unspecified (principal); I10 Essential (primary) hypertension; E11.9 Type 2 diabetes mellitus without complications
CPT/HCPCS: 36415; 80053; 80061; 83036

== ENCOUNTER 2024-06-01 20:59 | Emergency (ER) | payer MEDICARE, SELFPAY ==
[2024-06-01] VITALS (7 sets, daily range): BP systolic 104–173; BP diastolic 60–93; PULSE 62–88; RESP 16–20; TEMP 36.6–36.8; O2SAT 96–99; BMI 25.9
--- NOTE | 2024-06-01 21:14 | CT_ITS ---
PROCEDURE INFORMATION: Exam: CT Abdomen And Pelvis With Contrast Exam date and time: 06/01/2024 9:47 PM Age: 83 years old Clinical indication: Other: Bilateral lower abdominal pain TECHNIQUE: Imaging protocol: Computed tomography of the abdomen and pelvis with contrast. Radiation optimization: All CT scans at this facility use at least one of these dose optimization techniques: automated exposure control; mA and/or kV adjustment per patient size (includes targeted exams where dose is matched to clinical indication); or iterative reconstruction. Contrast material: ISOVUE; Contrast volume: 75 ml; Contrast route: IV; COMPARISON: CT HEART W CALCIUM SCORE 01/19/2021 7:02 AM FINDINGS: Lungs: Subsegmental atelectasis or scarring noted in the left lower lung. Mild dependent atelectasis of the right lower lobe. Liver: A few scattered subcentimeter hypodense lesions noted throughout the liver, too small to fully characterize. These likely represent small cysts or hemangiomas. No suspicious liver lesion evident. Gallbladder and biliary ducts: Normal. No calcified stones. No ductal dilation. Pancreas: Normal. No ductal dilation. Spleen: Normal. No splenomegaly. Adrenal glands: Normal. No mass. Kidneys and ureters: Simple appearing exophytic cortical cysts noted in the lower left kidney. Right kidney appears normal. No hydronephrosis. Stomach and bowel: Diffuse fold thickening and mucosal enhancement throughout the mid to distal small bowel compatible with enteritis. Mild diverticulosis throughout the distal colon. A few scattered small bowel loops appear mildly dilated suggesting ileus. No convincing evidence of bowel obstruction. Appendix: No evidence of appendicitis. Intraperitoneal space: Unremarkable. No free air. No significant fluid collection. Vasculature: Moderate scattered atherosclerotic calcification throughout the aorta and iliac arteries. No evidence of aneurysm or dissection. Lymph nodes: Unremarkable. No enlarged lymph nodes. Urinary bladder: Unremarkable as visualized. Reproductive: Unremarkable as visualized. Bones/joints: Unremarkable. No acute fracture. Soft tissues: Unremarkable. IMPRESSION: Findings suggesting diffuse enteritis throughout the mid to distal small bowel with associated small bowel ileus pattern. COMMENTS: Consistent with the [employer]'s Incidental Findings Committee white paper (J Am Sumaya Radiol 2018): Any incidental renal lesion less than 1 cm or classified as too small to characterize, or any incidental cystic renal lesion characterized as simple-appearing, is likely benign. No follow-up imaging is recommended for these lesions per consensus recommendations based on imaging criteria.
--- NOTE | 2024-06-01 21:20 | ED_ITS ---
Discharge Plan Disposition Patient Disposition: Home, Self-Care Condition: Good Prescriptions Prescriptions: New pantoprazole 40 mg tablet,delayed release (DR/EC) 40 mg PO DAILY Qty: 30 0RF ondansetron 4 mg tablet,disintegrating 4 mg PO Q8H PRN (Reason: nausea and vomiting) 4 Days Qty: 12 0RF naproxen 500 mg tablet 500 mg PO BID PRN (Reason: pain) Qty: 20 0RF No Action Januvia 100 mg tablet 100 mg PO DAILY glimepiride 1 mg tablet 1 mg PO DAILY Patient Comments: TAKE 1 TABLET BY MOUTH EVERY DAY WITH BREAKFAST OR THE FIRST MAIN MEAL OF THE DAY ezetimibe 10 mg tablet 10 mg PO DAILY loratadine [Allergy Relief (loratadine)] 10 mg tablet 10 mg PO DAILY metformin 750 mg tablet extended release 24 hr 1,500 mg PO DAILY Farxiga 10 mg tablet 10 mg PO DAILY atorvastatin 40 mg tablet 40 mg PO DAILY Qty: 90 3RF hydrochlorothiazide 12.5 mg tablet 12.5 mg PO DAILY Qty: 90 3RF aspirin 81 MG tablet,delayed release (DR/EC) 81 mg PO DAILY lisinopril 5 mg tablet 2.5 mg PO DAILY Referrals Follow up/Referrals: Brock Baumann MD [Primary Care Provider] - See instructions Activity Restrictions/Add. Instructions Additional Instructions/Restrictions: You were evaluated in the emergency department today. At this time, your CT scan is concerning for enteritis or inflammation of your intestines. This could happen for a number of different reasons. It does not look like there is any evidence of ischemia or lack of blood flow to your bowel at this time, but certainly if you develop any significant worsening in symptoms, return to the emergency department right away for evaluation. Please peanut picker your prescriptions and take them as prescribed. You may also take Tylenol every 4-6 hours as needed for pain. Follow-up closely with your primary care provider over the next 48 hours for reassessment. Return to the emergency department right away for new or worsening symptoms. Clinical Impressions Clinical Impression: Abdominal pain, Enteritis, Ileus Instructions Patient Instructions: DI for Ileus, DI for Acute Abdominal Pain, DI for Enteritis Print Language Print Language: Mauritian Discharge ED Provider: [facility] HPI General Chief complaint: Abdominal Pain Stated complaint: abdominal pain Time Seen by Provider: 06/01/24 21:08 History of Present Illness HPI narrative: This patient is an 83-year-old male with a history of pacemaker, hypertension, hyperlipidemia, skin cancer, diabetes presented to the emergency department for evaluation with concern for abdominal pain. Patient notes that he started having abdominal pain in both lower quadrants around 7:30 PM. He was fine prior to that. No fevers, chills, nausea, vomiting, changes in bowel movement such as constipation or diarrhea, melena, hematochezia, urinary symptoms, or other concerns. He denies any history of prior abdominal issues. He does have a history of prostatectomy but no other surgeries noted Related Data Home Medications ?Medication ?Instructions ?Recorded ?Confirmed ezetimibe 10 mg tablet 10 mg PO DAILY Cholesterol 09/30/17 06/01/24 loratadine 10 mg tablet (Allergy 10 mg PO DAILY allergies 09/30/17 06/01/24 Relief (loratadine)) aspirin 81 mg tablet,delayed 81 mg PO DAILY CAD 08/09/21 06/01/24 release dapagliflozin propanediol 10 mg 10 mg PO DAILY 02/18/22 06/01/24 tablet (Farxiga) metformin 750 mg tablet,extended 1,500 mg PO DAILY Diabetes 02/18/22 06/01/24 release 24 hr sitagliptin phosphate 100 mg 100 mg PO DAILY 03/18/22 06/01/24 tablet (Januvia) glimepiride 1 mg tablet 1 mg PO DAILY 05/26/23 06/01/24 lisinopril 5 mg tablet 2.5 mg PO DAILY 08/11/23 06/01/24 Previous Rx's ?Medication ?Instructions ?Recorded atorvastatin 40 mg tablet 40 mg PO DAILY hld #90 tabs 09/09/23 hydrochlorothiazide 12.5 mg tablet 12.5 mg PO DAILY Fluid #90 tabs 12/31/23 naproxen 500 mg tablet 500 mg PO BID PRN pain #20 tabs 06/01/24 ondansetron 4 mg disintegrating 4 mg PO Q8H PRN nausea and 06/01/24 tablet vomiting 4 days #12 tabs pantoprazole 40 mg tablet,delayed 40 mg PO DAILY #30 tabs 06/01/24 release Allergies Allergy/AdvReac Type Severity Reaction Status Date / Time oxytetracycline Allergy Unknown Verified 12/22/23 14:46 allergy reaction PFSH [facility] Disclaimer: The information contained in this section may have been updated after the patient was seen, as this information can be updated by other users. Medical History Pacemaker Sinus pause Left posterior fascicular block Right bundle branch block Elevated coronary artery calcium score Sinus bradycardia Abnormal electrocardiogram [ECG] [EKG] Surgical History Hx of colonoscopy Family History Other Cancer Diabetes Hypertension Social History Smoking Status: Never smoker alcohol intake: never substance use type: denies use current occupational status: retired Travel in the last 8 weeks: None household members: none housing: house current occupational exposures/hazards: No caffeine: Yes Have you lived/traveled outside [place] in past 30 days?: No Contact w/someone who lives/traveled outside [place] past 30 days?: No Exposure to someone with infectious disease in past 14 days?: No Do you have a fever (greater than 100.4 F or 38 C)?: No Have you tested positive for COVID-19: No Exposed to someone with COVID-19 in past 14 days?: No Do you have a sore throat?: No Do you have a cough?: No Do you have any weakness?: No Do you have any diarrhea?: No Are you experiencing any unusual bleeding?: No Do you have any muscle aches/pain?: No Do you have any abdominal pain?: Yes Are you experiencing loss of taste or smell?: No Other Medical History Have you received the Flu Vaccine for this season: Yes Have you received the Pneumonia Vaccine: Yes ROS Obtained: Yes All systems reviewed & no additional complaints except as documented Physical Exam General General appearance: alert and in no apparent distress Head Head exam: atraumatic and normocephalic Eye Eye exam: Present normal appearance, PERRL and EOMI ENT ENT exam: Present normal exam, normal oropharynx, mucous membranes moist and normal external ear exam Neck Neck exam: Present normal inspection, full ROM and trachea midline; Absent tenderness Chest Chest inspection: Present normal inspection and symmetric chest wall rise; Absent tenderness Respiratory Respiratory exam: Present normal lung sounds bilaterally; Absent respiratory distress, wheezes, stridor or accessory muscle use Cardiovascular Cardiovascular exam: Present regular rate and normal rhythm Abdominal Exam Abdominal exam: Present soft and tenderness (Mild generalized, worse in left lower quadrant); Absent distention, guarding, rebound or rigidity Extremities Exam Extremities exam: Present normal inspection, full ROM and normal capillary refill; Absent tenderness or edema Back Exam Back exam: Present normal inspection and full ROM; Absent tenderness Neurological Exam Neurological exam: Present alert, oriented X3, CN II-XII intact and normal gait; Absent motor sensory deficit Psychiatric Psychiatric exam: Present normal affect and normal mood Skin Skin exam: Present warm and dry Medical Decision Making Medical Records Medical records reviewed: Yes I reviewed the patient's medical records. Screening: Per USPSTF and CDC recommendations, given the prevalence of disease in our region, it is our hospital?s policy to screen for HIV and viral Hepatitis for all patients aged 18 and over and those with ongoing risk factors. [place] Inquiry Pt receiving controlled substance: No Vital Signs: 06/01/24 21:00 06/01/24 21:30 06/01/24 22:21 Temperature 97.9 F Temperature Source Oral Pulse Rate 63 62 Pulse Rate [Right Radial] 69 Respiratory Rate 16 Blood Pressure 130/77 114/62 Blood Pressure [Right Arm] 173/93 H Blood Pressure Mean [Right Arm] 119 Blood Pressure Source [Right Arm] Automatic Cuff 02 Sat by Pulse Oximetry 98 99 97 Oxygen Delivery Method Room Air 06/01/24 22:30 Temperature Temperature Source Pulse Rate 68 Pulse Rate [Right Radial] Respiratory Rate Blood Pressure 104/60 L Blood Pressure [Right Arm] Blood Pressure Mean [Right Arm] Blood Pressure Source [Right Arm] 02 Sat by Pulse Oximetry 96 Oxygen Delivery Method Lab Data Lab results reviewed: Yes I reviewed the patient's lab results. Lab Results 06/01/24 21:25: WBC 6.2, RBC 4.66, Hgb 14.5, Hct 43.9, MCV 94.2 H, MCH 31.1, MCHC 33.0, RDW 14.3, Plt Count 233, MPV 10.7 H, Neut % (Auto) 60.8, Lymph % (Auto) 28.2, Wilkes % (Auto) 8.2, Eos % (Auto) 1.9, Baso % (Auto) 0.6, Neut # (Auto) 3.8, Lymph # (Auto) 1.8, Wilkes # (Auto) 0.5, Eos # (Auto) 0.1, Baso # (Auto) 0.0, PT 9.4, INR 0.83 L, Sodium 139, Potassium 3.6, Chloride 99, Carbon Dioxide 29, Anion Gap 14.6, BUN 20, Creatinine 1.30 H, Estimated Creat Clear 49, Estimated GFR 53 L, Est GFR ( Amer) 64, Glucose 164 H, Lactate 1.7, C alcium 10.3 H, Total Bilirubin 0.8, AST 35, ALT 41, Alkaline Phosphatase 88, Troponin I < 0.01, Total Protein 7.9 D, Albumin 5.0, Globulin 2.9, Albumin/Globulin Ratio 1.7, Lipase 102, Urine Color Yellow, Urine Appearance Clear, Urine pH 6.0, Ur Specific Slaughter 1.010, Urine Protein Negative, Urine Glucose (UA) 3+, Urine Ketones Negative, Urine Blood Negative, Urine Nitrate Negative, Urine Bilirubin Negative, Urine Urobilinogen 0.2, Ur Leukocyte Esterase Negative, Urine RBC Occasional, Urine WBC Occasional, Ur Squamous Epith Cells Occasional, HCV Ab CHAD w/Rflx PCR Qn Negative, HIV Ag/Ab Combo Qual Negative 06/01/24 21:25 06/01/24 21:25 Orders (Tests/Meds): ED MEDICATIONS Generic Name Dose Route Start Last Admin Trade Name Freq PRN Reason Stop Dose Admin Sodium Chloride 10 ml 06/01/24 21:47 06/01/24 21:48 Sodium Chloride 0.9% 10ml Syr (Rad Only) IV 07/01/24 21:46 10 ml NEEDED PRN Administration Maintain IV Site Discontinued Medications Generic Name Dose Route Start Last Admin Trade Name Freq PRN Reason Stop Dose Admin Acetaminophen 1,000 mg 06/01/24 21:14 06/01/24 21:23 Acetaminophen 1,000mg/100ml Vial IV 06/01/24 21:15 1,000 mg ONCE ONE Administration Iopamidol 75 ml 06/01/24 21:47 06/01/24 21:48 Iopamidol-370 (76%);100ml Bottle IV 06/01/24 21:48 75 ml ONCE ONE Administration Ketorolac Tromethamine 15 mg 06/01/24 21:14 06/01/24 21:23 Ketorolac 30mg/Ml Vial IV 06/01/24 21:15 15 mg ONCE ONE Administration ORDERS Category Date Time Status CT abdomen pelvis w con Stat Cat Scan 06/01/24 21:14 Completed Complete Blood Count Auto Diff Stat Lab 06/01/24 21:25 Completed Comprehensive Metabolic Panel Stat Lab 06/01/24 21:25 Completed HIV Combo Stat Lab 06/01/24 21:25 Completed Hepatitis C Ab Qual. W/ RFX Stat Lab 06/01/24 21:25 Completed Lactic Acid Stat Lab 06/01/24 21: Completed Lipase Stat Lab 06/01/24 21:25 Completed Prothrombin Time INR Stat Lab 06/01/24 21:25 Completed Trop I [Troponin I] Stat Lab 06/01/24 21: Completed Troponin I Q3H Lab 06/02/24 00:15 Ordered Troponin I Q3H Lab 06/02/24 03:15 Ordered UA [Urinalysis and Microscopic] Stat Lab 06/01/24 21:25 Completed ECG Data Tracing #1: I reviewed this ECG and interpreted as documented below: Normal sinus rhythm with a ventricular rate of 67 bpm. Right bundle branch block. No acute ST changes concerning for STEMI. ECG initial impression date: 06/01/24 ECG initial impression time: 22:05 Medical Decision Narrative: In summary, this patient is a 83-year-old male presenting to the Emergency Department for evaluation of lower abdominal pain bilaterally that started this evening. Differential diagnoses considered include but are not limited to diverticulitis, colitis, cystitis, ureterolithiasis, pyelonephritis, appendicitis. Ruling out the most morbid conditions drove assessment. It should be noted patient's history includes cardiac dysfunction status post pacemaker placement, hypertension, hyperlipidemia, and diabetes which may or may not be at goal therapy. This complicates all aspects of care by increasing patient's risk for morbidity. I reviewed patient's past medical records and noted cardiology evaluations in pacer clinic. On exam, the patient is lying in bed in no acute distress with reassuring vital signs and cardiac telemetry. He has lower abdominal tenderness but no rebound or guarding. No rigidity. He is afebrile and is nontoxic-appearing. Workup included CBC, CMP, lipase, lactic acid, urinalysis, troponin, EKG, CT abdomen and pelvis with IV contrast. He was given IV Toradol and acetaminophen for symptomatic improvement.. I independently interpreted CT scan prior to the radiologist read and noted fluid-filled loops of bowel with some wall thickening/inflammation. Please see their read for final interpretation. They noted concerns for enteritis and ileus pattern. Labs were obtained that demonstrated reassuring CBC with no significant leukocytosis or anemia, reassuring chemistry with normal lactic acid, kidney function around his baseline, no transaminitis or elevation in lipase. Labs are overall very reassuring. On reassessment, patient had great improvement after administration of interventions above. He is able to tolerate oral intake without recurrence of pain and no vomiting. I considered ischemia given paroxysmal atrial fibrillation and cardiovascular history, but his lactic acid is normal and symptoms are significantly improved. Abdominal exam is benign. He has no pneumatosis or free air. Given this, it is possible he could just have infectious enteritis. After shared decision-making with patient and family, they are agreeable to go home with close outpatient follow-up with primary care provider this week. Prescriptions for pantoprazole, Pepcid, and naproxen given for supportive management and instructions for supportive care with strict return precautions were given. Patient was discharged after all questions were answered.. Critical Care Critical Care Time Critical Care Time: No
[2024-06-01] MEDS: ACETAMINOPHEN 1,000MG/100ML VIAL 1000 MG IV (21:23)
[2024-06-01] MEDS: KETOROLAC 30MG/ML VIAL 15 MG IV (21:23)
[2024-06-01 21:33] LABS: Microscopic, Urine URINE MICROSCOPIC (MICROSCOPIC)
[2024-06-01 21:41] LABS: Basophils % 0.6 % (0.1-2.0); Eosinophils # 0.1 K/mm3 (0.0-0.4); Eosinophils % 1.9 % (0.1-12.0); Hematocrit 43.9 % (42.0-52.0); Hemoglobin 14.5 g/dL (14.1-18.0); Lymphocytes # 1.8 K/mm3 (0.7-4.5); Lymphocytes % 28.2 % (10-50); Mean Corpuscular Hemoglobin 31.1 pg (27.0-31.2); Mean Corpuscular Volume 94.2 fl (80-94); Mean Platelet Volume 10.7 fl (7.4-10.4); Monocytes # 0.5 K/mm3 (0.1-1.0); Monocytes % 8.2 % (1.7-9.3); Neutrophils # 3.8 K/mm3 (1.8-7.8); Neutrophils % 60.8 % (37.0-80.0); Platelet Count 233 K/mm3 (142-424); Red Blood Count 4.66 M/mm3 (4.60-6.20); Red Cell Distribution Width 14.3 % (11.5-17.5); White Blood Count 6.2 K/mm3 (4.8-10.8)
[2024-06-01 21:46] LABS: Chloride 99 mmol/L (98-107); Sodium 139 mmol/L (136-145)
[2024-06-01 21:47] LABS: INR 0.83 (0.9-1.1); Potassium 3.6 mmoL/L (3.5-5.1); Prothrombin Time 9.4 seconds (9.2-12.1)
[2024-06-01] MEDS: SODIUM CHLORIDE 0.9% 10ML SYR (RAD ONLY) 10 ML IV (21:48)
[2024-06-01] MEDS: IOPAMIDOL-370 (76%);100ML BOTTLE 75 ML IV (21:48)
--- NOTE | 2024-06-01 21:48 | PC.NURSE ---
Pt in CT scan
[2024-06-01 21:49] LABS: Alanine Aminotransferase 41 U/L (12-78); Alkaline Phosphatase 88 U/L (38-126); Anion Gap 14.6 mEq/L (5-15); Aspartate Amino Transferase 35 U/L (17-59); Bilirubin,Total 0.8 mg/dl (0.2-1.3); Blood Urea Nitrogen 20 mg/dl (9-20); Carbon Dioxide 29 mmol/L (22.0-30.0); Creatinine Clearance Estimated 49 mL/min (50-200); Estimated Glomerular Filt Rate 53 ml/min (>60); GFR (African American) 64 ML/MIN (>60)
[2024-06-01 21:50] LABS: Albumin/Globulin Ratio 1.7 (1.1-1.8); Calcium 10.3 mg/dl (8.4-10.2); Globulin 2.9 g/dL (1.3-3.2); Glucose 164 mg/dl (74-100); Lactic Acid 1.7 mmol/L (0.7-2.1); Lipase 102 U/L (23-300); Total Protein,Serum 7.9 g/dl (6.3-8.2)
[2024-06-01 21:58] LABS: Appearance,Urine Clear (Clear); Color,Urine Yellow (Yellow)
[2024-06-01 21:59] LABS: Bilirubin,Urine Negative (Negative); Blood, Urine Negative (Negative); Glucose,Urine (UA) 3+ (Negative); Ketones,Urine Negative (Negative); Leukocyte Esterase,Urine Negative (Negative); Nitrate,Urine Negative (Negative); Protein,Urine Negative (Negative); RBC,Urine Occasional #/hpf (0-3); Urobilinogen,Urine 0.2 EU/dl (0.2); WBC,Urine Occasional #/hpf (0-3)
--- NOTE | 2024-06-01 21:59 | ECG_ITS ---
APPROVED REPORT Exam: Resting ECG HR:67 bpm ECG Measurements Heart Rate 67 AXES DE 187 P 63 QRSd 147 QRS 83 QT 452 T 63 QTc 467 Conclusion SINUS RHYTHM RIGHT BUNDLE BRANCH BLOCK [120+ ms QRS DURATION, UPRIGHT V1, 40+ ms S IN I/aVL/V4/V5/V6] Electronically signed by : PHILL YU, 06/01/2024 23:57:41
[2024-06-01 22:00] LABS: Squamous Epithelial Cell,Urine Occasional #/hpf (0-5)
[2024-06-01 22:10] LABS: Troponin I < 0.01 ng/ml (0.00-0.034)
[2024-06-01 22:30] LABS: HIV Combo NEGATIVE (Negative)
[2024-06-01 22:39] LABS: Hepatitis C Ab Qual. W/ RFX NEGATIVE (Negative)
== END 2024-06-01 23:55 | disposition home or self-care (01) ==
PROVIDERS: Emergency Provider Emergency Medicine; PCP Family Medicine
DX: K56.7 Ileus, unspecified (principal); K52.9 Noninfective gastroenteritis and colitis, unspecified; R10.31 Right lower quadrant pain; R10.32 Left lower quadrant pain
CPT/HCPCS: 74177; 80053; 81001; 83605; 83690; 84484; 85025; 85610; 86803; 87389; 93005; 96374; 96375; 99285; J0131; J1885; Q9967

== ENCOUNTER 2024-11-24 08:41 | Outpatient (CLI) | payer MEDICARE, SELFPAY ==
[2024-11-24 09:49] LABS: Albumin Level 4.3 g/dl (3.5-5.0); Chloride 109 mmol/L (98-107); Hemoglobin A1C 6.9 % (4.0-6.0); Potassium 4.4 mmoL/L (3.5-5.1); Sodium 141 mmol/L (136-145)
[2024-11-24 09:52] LABS: Alanine Aminotransferase 24 U/L (12-78); Albumin/Globulin Ratio 2.0 (1.1-1.8); Alkaline Phosphatase 82 U/L (38-126); Anion Gap 11.4 mEq/L (5-15); Aspartate Amino Transferase 27 U/L (17-59); Bilirubin,Total 0.7 mg/dl (0.2-1.3); Blood Urea Nitrogen 20 mg/dl (9-20); Calcium 9.9 mg/dl (8.4-10.2); Carbon Dioxide 25 mmol/L (22.0-30.0); Cholesterol 74 mg/dl (140-200); Creatinine,Serum 1.20 mg/dl (0.66-1.25); Estimated Glomerular Filt Rate 58 ml/min (>60); GFR (African American) 70 ML/MIN (>60); Globulin 2.1 g/dL (1.3-3.2); Glucose 122 mg/dl (74-100); Total Protein,Serum 6.4 g/dl (6.3-8.2); Triglycerides 55 mg/dl (30-150)
[2024-11-24 09:53] LABS: HDL Cholesterol 33 mg/dl (40-60)
== END 2024-11-24 23:59 | disposition home or self-care (01) ==
LOC: LAB 08:42
PROVIDERS: PCP Family Medicine; Visit Provider Family Medicine
DX: E78.5 Hyperlipidemia, unspecified (principal); I10 Essential (primary) hypertension; E11.9 Type 2 diabetes mellitus without complications; Z12.5 Encounter for screening for malignant neoplasm of prostate
CPT/HCPCS: 36415; 80053; 80061; 82043; 82570; 83036; G0103